=== PATIENT | female | born 1950 | race African-American/Black ===

== ENCOUNTER 2025-03-01 14:31 | Emergency (ER) | payer OTHER, MEDICARE, SELFPAY ==
--- NOTE | ~2025-03-01 | CT_ITS ---
CLINICAL HISTORY: sepsis CT chest with contrast Comparison: CT/SR - CT ABDOMEN PELVIS W IV CON - 03/01/25 20:20 EDT Findings: The heart is normal size. Small hiatal hernia. Dual power injectable right internal jugular chest port. Moderate to severe emphysema most significant in the upper lungs. Mild atelectasis at the lung bases. No consolidation or effusion. Abdominal findings are discussed on the comparison exam. Old T12 superior endplate Schmorl's node. Osteopenia. No acute fracture. IMPRESSION: No CT findings to explain sepsis. This document has been electronically signed by: Alyx Peterson MD on 03/01/2025 22:55:40
--- NOTE | ~2025-03-01 | CT_ITS ---
CLINICAL HISTORY: hallucinations CT head without contrast Comparison: None provided Findings: No intra-axial mass, midline shift, hydrocephalus, or acute hemorrhage. Moderate atrophy like change and nonspecific white matter hypodensity. The visualized paranasal sinuses and mastoid air cells are normal. Irregular shaped globes. Bilateral lens replacements. Orbits otherwise unremarkable. There is no acute fracture. IMPRESSION: No acute intracranial findings. This document has been electronically signed by: Alyx Peterson MD on 03/01/2025 22:57:45
--- NOTE | ~2025-03-01 | XR_ITS ---
EXAMINATION: XR CHEST CLINICAL INFORMATION: sepsis COMPARISON: None available. TECHNIQUE: Frontal view of the chest was obtained. FINDINGS: Right IJ tunneled catheter terminates at the superior cavoatrial junction. Lungs are clear with a reticular pattern in the right greater than left lung. Heart size is within normal limits. XR/XR chest 1V IMPRESSION: Probable chronic changes, no acute disease. Electronically signed by: Reinier Morgan MD 03/01/2025 05:13 PM EDT
--- NOTE | ~2025-03-01 | CT_ITS ---
CLINICAL HISTORY: abdominal pain CT abdomen and pelvis with contrast Comparison: CT/SR - CT CHEST W IV CON - 03/01/25 20:20 EDT Findings: Chest findings are discussed on the comparison. Mild dependent atelectasis at the lung bases. Unremarkable gallbladder and solid organs. No urolithiasis. No bowel obstruction, pneumoperitoneum, or pneumatosis. Moderate stool. Mesenteric vessels patent. Small right inguinal hernia contains fat without induration. Small calcified uterine fibroids. Ovaries are unremarkable. Normal appendix. Distal colonic diverticulosis without diverticulitis. Osteopenia. Subacute appearing mild superior endplate compression fracture L3. Old mild compression fractures scattered through the lumbar spine and superior endplate schmorl's node at T12. IMPRESSION: 1. Moderate stool without bowel obstruction. 2. Subacute appearing mild superior endplate L3 compression fracture. 3. Small right inguinal hernia contains fat without induration. This document has been electronically signed by: Alyx Peterson MD on 03/01/2025 22:54:44
[2025-03-01 15:06] VITALS: BP 158/88; BP 185/89; PULSE 77; PULSE 91; RESP 18; TEMP 37.1; O2SAT 95; O2SAT 98; BMI 37.4
--- NOTE | 2025-03-01 15:13 | ECG_ITS ---
Test Reason : WEAKNESS Blood Pressure : */* mmHG Vent. Rate : 77 BPM Atrial Rate : 77 BPM P-R Int : 242 ms QRS Dur : 102 ms QT Int : 406 ms P-R-T Axes : 16 -11 13 degrees QTcB Int : 459 ms Sinus rhythm with 1st degree A-V block Possible Left atrial enlargement Borderline ECG No previous ECGs available Referred By: Generic ED Physician Electronically Signed By: MAJOR TOWNSEND MD
[2025-03-01 16:58] LABS: MANUAL DIFF FLAG NO
--- NOTE | 2025-03-01 17:01 | PC.NURSE ---
Pt BIBA for reports of generalized weakness with mult falls at home, Also reports visual hallucinations, ex- seeing people that are not there. A/O x 3, reports low back pain 12/28. EKG and labs collected and sent. #22 to [facility], IVF per AUG. Call galo within reach and able to make needs known.
[2025-03-01 17:02] LABS: Hematocrit 41.6 % (37.0-47.0); Hemoglobin 13.6 g/dl (12.0-16.0); Imm Gran Abs Auto 0.01 X10*3/uL (0.00-0.03); Imm Gran Pct Auto 0.2 % (0.0-0.4); Lymphocytes Absolute Auto 1.6 X10*3/uL (1.2-4.9); Mean Corpuscular HGB Conc 32.7 g/dl (31.0-35.0); Mean Corpuscular Hemoglobin 28.6 pg (27.0-33.0); Mean Corpuscular Volume 87.6 fL (80.0-98.0); NRBC Abs Auto 0.000 X10*3/uL (0.0-0.012); NRBC Pct Auto 0.0 /100WBC (0.0-0.2); Platelet Count 184 X10*3/uL (160-400); Red Blood Count 4.75 X10*6/uL (4.20-5.50); White Blood Count 5.4 X10*3/uL (4.8-10.8)
[2025-03-01 17:15] LABS: IDNOW Serial# 6674DD1D
[2025-03-01 17:16] LABS: COVID-19 Test Negative (Negative); IDNOW Serial# 08D9AD1C; Influenza B2 Negative (Negative)
[2025-03-01 17:19] LABS: Alanine Aminotransferase 16 U/L (0-31); Albumin Level 4.7 g/dL (3.5-5.0); Alkaline Phosphatase 103 U/L (39-117); Anion Gap 16 (12-20); Aspartate Amino Transferase 30 U/L (5-31); Blood Urea Nitrogen 17 mg/dL (9-16); Calcium 9.9 mg/dL (8.4-10.2); Carbon Dioxide 26 mmol/L (22-29); Chloride 106 mmol/L (96-108); Creatinine Clr Calc Pharmacy 96.5; Estimated Glomerular Filt Rate > 60; Potassium 3.8 mmol/L (3.3-5.1); Sodium 144 mmol/L (135-145); Total Protein 7.8 g/dL (6.5-8.0)
--- NOTE | 2025-03-01 17:19 | ED.GENADULT ---
HPI - General Adult General Chief complaint: Weakness Stated complaint: SEEING SHADOWS X3D,ON HOME O2 PER EMS Time Seen by Provider: 03/01/25 15:26 Source: patient Mode of arrival: ambulatory Limitations: no limitations History of Present Illness ED Provider: Dr. Dawson HPI narrative: This is a 74-year-old female presenting to ER today for evaluation of hallucinations. Patient stated that she has been seen shattered we presents that has not been there in the past. She is also complaining of generalized weakness with fatigue. She also has multiple fall at home. He has not complained of any headache at this time. Patient denies any dysuria denies any abdominal pain nausea vomiting or diarrhea. Patient denies any coughing. However does endorse some nasal congestion. Related Data Home Medications ?Medication ?Instructions ?Recorded ?Confirmed acetaminophen 650 mg 650 mg PO TIDWM 03/02/25 03/02/25 tablet,extended release apixaban 5 mg tablet (Eliquis) 5 mg PO BID 03/02/25 03/02/25 bumetanide 1 mg tablet 1 mg PO DAILY PRN Leg Swelling 03/02/25 03/02/25 bupropion HCl 150 mg 24 hr tablet, 150 mg PO DAILY 03/02/25 03/02/25 extended release bupropion HCl 300 mg 24 hr tablet, 300 mg PO DAILY 03/02/25 03/02/25 extended release buspirone 5 mg tablet 5 mg PO TID 03/02/25 03/02/25 clonazepam 0.5 mg tablet 0.5 mg PO BID 03/02/25 03/02/25 donepezil 10 mg tablet 10 mg PO BEDTIME 03/02/25 03/02/25 ezetimibe 10 mg tablet 10 mg PO DAILY 03/02/25 03/02/25 fluticasone fur. 100 mcg-umeclid 1 ea inhalation DAILY 03/02/25 03/02/25 62.5 mcg-vilant 25 mcg inhalat.powder (Trelegy Ellipta) gabapentin 300 mg capsule 300 mg PO DAILY 03/02/25 03/02/25 gabapentin 300 mg capsule 900 mg PO BEDTIME 03/02/25 03/02/25 levocetirizine 5 mg tablet 5 mg PO BEDTIME 03/02/25 03/02/25 lisinopril 40 mg tablet 40 mg PO DAILY 03/02/25 03/02/25 trazodone 150 mg tablet 150 - 300 mg PO BEDTIME PRN 03/02/25 03/02/25 Insomnia verapamil 240 mg 24 hr 240 mg PO DAILY 03/02/25 03/02/25 capsule,extended release vibegron 75 mg tablet (Gemtesa) 75 mg PO DAILY 03/02/25 03/02/25 Allergies Allergy/AdvReac Type Severity Reaction Status Date / Time Penicillins Allergy Shortness Verified 03/01/25 15:12 of Breath Review of Systems Review of Systems: Pertinent review of systems as mentioned in HPI. All other system otherwise negative. [facility] Past Medical History [facility] Narrative: History is limited to the patient mentation currently Social History Social History Smoked in Last 30 Days: No Advance Directives: No Advance Directives Information Provided: Yes Physical Exam ED Exam Exam: General: Patient is resting in bed. Head: Normacephalic, atraumatic ENT: oral mucosa moist, neck supple, no tracheal deviation Cardiovascular: regular rate, regular rhythm, no murmurs, rubbing, gallops Respiratory: CTAB, no wheeze, rales, rhonchi Gastrointestinal: Soft, non distended, non tender, non guarding Extremities: No limb pain or swelling, no calf tenderness Neurological: Awake and alert, no facial droop noted Skin: Warm and dry Psychiatric: Endorses hallucinations Vital Signs: Vital Signs - 24 hr 03/01/25 18:59 03/01/25 20:34 03/01/25 22:29 Temperature 98.1 F 98.2 F 98.4 F Pulse Rate 76 78 74 Respiratory Rate 12 17 14 Blood Pressure 150/65 H 178/86 H 170/75 H Pulse Oximetry 100 97 99 Oxygen Delivery Method Nasal Cannula Room Air Nasal Cannula Oxygen Flow Rate 2 2 03/02/25 06:00 03/02/25 10:34 03/02/25 14:00 Temperature 97.2 F 98.1 F Pulse Rate 81 81 91 Respiratory Rate 16 18 Blood Pressure 185/76 H 185/76 H 182/98 H Pulse Oximetry 95 95 99 Oxygen Delivery Method Nasal Cannula Nasal Cannula Oxygen Flow Rate 2 2 BMI result Body Mass Index 37.4 Course Reevaluation(s) Reevaluation #1: 11:07 PM 03/01/2025 (Dr. Hitesh Dow): IDr. Dow have take over the care of this patient, I reviewed pertinent blood work and imaging, re-evaluated the patient when appropriate. Patient presented with weakness, multiple falls at home, had CT head chest abdomen and pelvis, I have viral swab that was negative, she has not been febrile, she did have lactate elevation to 2.3 IV fluids given and the numbers have improved. However patient has had multiple falls at home, her left knee has as she describes DJD with [id number] and and I do see that when I palpate her knee that is the most painful area in her body, she has DNR DNI, I am going to keep her for case management, she states she was in rehab up until 2 weeks ago. Sounds like she left because of high co-pay. There was report that patient was having visual hallucinations, this maybe the dementia she was worked up for delirium and surely if she is home nonambulatory this can be contributing to this but there was no evidence that this is due to underlying septic etiology. l Time: 23:06 Reevaluation #2: JS Nixon 03/02- Physician observation continued. Uneventful night. Vital signs stable. No complaints from nursing overnight. Med reconciliation reviewed and done. Pending disposition. Will continue to monitor. Time: 08:24 Reevaluation #3: Patient will be discharged home she is VNA services at home daughter will come for transport Educated patient on diagnosis and treatment plan, answered all question, patient verbalizes understanding. At this time patient will be discharged home, advised to return with new or worsening symptoms. Educated on worrisome signs and symptoms and when to return. At this time I feel comfortable discharge home. Medications Administered Discontinued Medications Generic Name Dose Route Start Last Admin Trade Name Tremayne PRN Reason Stop Dose Admin Acetaminophen 975 mg 03/01/25 16:00 03/01/25 16:58 Acetaminophen 325 Mg Tablet PO 03/01/25 16:01 975 mg ONCE ONE Administration Acetaminophen 975 mg 03/01/25 23:04 03/01/25 23:09 Acetaminophen 325 Mg Tablet PO 03/01/25 23:05 975 mg ONCE ONE Administration Sodium Chloride 1,000 mls @ 999 mls/hr 03/01/25 16:00 03/01/25 19:48 Ns IV 03/01/25 17:00 Infused .Q1H1M BRANDON Infusion Levofloxacin 750 mg in 150 mls @ 100 mls/hr 03/01/25 17:22 03/01/25 19:48 Levaquin IV 03/01/25 18:51 Infused ONCE ONE Infusion Iohexol 100 ml 03/01/25 20:40 03/01/25 20:40 Iohexol 350 Mg/Ml 100 Ml Infus..Btl IV 03/01/25 20:41 100 ml ONCE ONE Administration Medical Decision Making Medical Decision Making [facility] Narrative: 74-year-old female presented hospital today for evaluation of visual hallucination increased weakness and fall. Sepsis screening lab work was obtained for the patient. We will plan to give patient some p.o. Tylenol IV fluid, a dose of IV Levaquin will be initiated for the patient as well for empiric coverage. CBC chemistry lactic acid blood culture will be obtained as well. UA and COVID testing will be obtained. Plan to rule out UTI. On review of patient's lab work. No sign of leukocytosis does have elevated lactic acid at 2.3. Patient does have elevated BUN to creatinine ratio likely secondary to dehydration. UA does show smoke leuk esterase. Patient likely has a UTI. However her urine bacteria did not show any signs of bacteria. COVID and flu swab is negative. I did obtain a CT head due to patient's multiple falls. Patient will be signed out to oncoming provider pending CT imaging results. Differential Diagnosis Differential Diagnoses: The differential diagnosis associated with the presentation includes COVID, flu, UTI, metabolic encephalopathy Lab Data [facility] Lab Attestation statement: I reviewed the patient's lab results. 03/01/25 16:47 03/01/25 16:47 Labs: Lab Results 03/01/25 03/01/25 03/01/25 Range/Units 16:47 18:55 19:20 WBC 5.4 (4.8-10.8) X10*3/uL RBC 4.75 (4.20-5.50) X10*6/uL Hgb 13.6 (12.0-16.0) g/dl Hct 41.6 (37.0-47.0) % MCV 87.6 (80.0-98.0) fL MCH 28.6 (27.0-33.0) pg MCHC 32.7 (31.0-35.0) g/dl RDW 14.0 (11.0-16.0) % Plt Count 184 (160-400) X10*3/uL MPV 10.7 (9.4-12.3) fL Immature Gran % (Auto) 0.2 (0.0-0.4) % Neut % (Auto) 57.4 (45-73) % Lymph % (Auto) 30.3 (20-40) % [place] % (Auto) 8.1 (2-11) % Eos % (Auto) 3.3 (0-4) % Baso % (Auto) 0.7 (0-2) % Lymph # (Auto) 1.6 (1.2-4.9) X10*3/uL [place] # (Auto) 0.4 (0.1-1.2) X10*3/uL Eos # (Auto) 0.2 (0.0-0.4) X10*3/uL Baso # (Auto) 0.0 (0.0-0.2) X10*3/uL Abs Immat Gran (auto) 0.01 (0.00-0.03) X10*3/uL Absolute Neuts (auto) 3.1 (2.0-8.3) x10*3/uL Absolute Nucleated RBC 0.000 (0.0-0.012) X10*3/uL Nucleated RBC % (auto) 0.0 (0.0-0.2) /100WBC Sodium 144 (135-145) mmol/L Potassium 3.8 (3.3-5.1) mmol/L Chloride 106 (96-108) mmol/L Carbon Dioxide 26 (22-29) mmol/L Anion Gap 16 (12-20) BUN 17 H (9-16) mg/dL Creatinine 0.66 (0.5-1.4) mg/dL Estim Creat Clear Calc 96.5 Estimated GFR > 60 Random Glucose 80 (60-115) mg/dL Lactic Acid 2.3 H* (0.5-2.0) mmol/L Lactic Acid F/U @ 2Hr 1.3 (0.5-2.0) mmol/L Calcium 9.9 (8.4-10.2) mg/dL Total Bilirubin 0.5 (0.0-1.0) mg/dL AST 30 (5-31) U/L ALT 16 (0-31) U/L Alkaline Phosphatase 103 (39-117) U/L Total Protein 7.8 (6.5-8.0) g/dL Albumin 4.7 (3.5-5.0) g/dL Urine Color Yellow Urine Appearance Clear Urine pH 6.0 (5.0-9.0) Ur Specific [place] 1.020 (1.005-1.025) Urine Protein Trace (Neg-Trace) mg/dL Urine Glucose (UA) Negative (Negative) mg/dL Urine Ketones Negative (Negative) mg/dL Urine Blood Negative (Negative) Urine Nitrite Negative (Negative) Ur Leukocyte Esterase Small (1+) H (Negative) Urine RBC 0-2 (0-2) /HPF Urine WBC 6-10 H (0-5) /HPF Ur Squamous Epith Cells 3-5 (0-2) /HPF Urine Bacteria None Seen (None Seen) Hyaline Casts 0-2 (0-2) /LPF COVID-19 (PÉREZ) Negative (Negative) COVID-19 Clin Com See Note Influenza Type A (HARITHA) Negative (Negative) Influenza Type B (HARITHA) Negative (Negative) Influenza A & B Note See Note Discharge Plan Discharge Clinical Impression: Acute metabolic encephalopathy, Adult failure to thrive, Osteoarthritis of left knee Patient Disposition: Home, Self-Care Instructions: Encephalopathy (DC), Osteoarthritis (ED) Additional Instructions: Take your medications as prescribed. If you were prescribed antibiotics today, it is important that you take your medication to their entirety, do not skip any doses, do not finish them early. Follow-up with your primary care provider this week. Return to the emergency department with new or worsening symptoms. Such as fevers, chills, chest pain, shortness of breath, nausea, vomiting, dizziness, headache, vision changes, lethargy In case of emergency call 911 Prescriptions: No Action buspirone 5 mg tablet 5 mg PO TID donepezil 10 mg tablet 10 mg PO BEDTIME clonazepam 0.5 mg tablet 0.5 mg PO BID trazodone 150 mg tablet 150 - 300 mg PO BEDTIME PRN (Reason: Insomnia) bumetanide 1 mg tablet 1 mg PO DAILY PRN (Reason: Leg Swelling) lisinopril 40 mg tablet 40 mg PO DAILY verapamil 240 mg capsule,ext rel. pellets 24 hr 240 mg PO DAILY ezetimibe 10 mg tablet 10 mg PO DAILY bupropion HCl 300 mg tablet extended release 24 hr 300 mg PO DAILY Rx Instructions: Taken with 150MG for TDD of 450mg daily bupropion HCl 150 mg tablet extended release 24 hr 150 mg PO DAILY Rx Instructions: Taken with 300mg for TDD of 450mg daily levocetirizine 5 mg tablet 5 mg PO BEDTIME Eliquis 5 mg tablet 5 mg PO BID acetaminophen 650 mg Tablet Extended Release 650 mg PO TIDWM gabapentin 300 mg capsule 300 mg PO DAILY gabapentin 300 mg capsule 900 mg PO BEDTIME Gemtesa 75 mg tablet 75 mg PO DAILY Trelegy Ellipta 100-62.5-25 mcg blister with device 1 ea inhalation DAILY Print Language: Guatemalan
--- OUTSIDE RECORDS SUMMARY | 2025-03-01 18:55 | XMS_ITS | Encounter Summary ---
Author Organization [facility] Address [address] [place] [address] Care Team Providers Care Shop Clerk Name Role Phone Rosalie Brush MD Primary Care Provider [phone]- [phone] Encounter Details Date Type Department Care Team (Late st Contact Info) Description 02/06/2025 Lab Requisition [facility] - Main Lab [address] [place] [address] Selvin Ruiz MD [address] [place] [address] [address] [place], [address] Urinary tract infection, site not specified Social History Tobacco Use Types Packs/Day Years Used Date Smoking Tobacco: Former Cigarettes Alcohol Use Standard Drinks/Week Comments Never 0 (1 standard drink = 0.6 oz pur e alcohol) Interpersonal Safety Answer Date Record ed Physical Abuse 01/31/2025 Verbal Abuse 01/31/2025 Comments No Sex and Gender Information Value Date Recorded Sex Assigned at Not on file Legal Sex Female 12:08 AM EST Gender Identity Not on file Sexual Orientation Not on file documented as of this encounter Functional Status * Are you deaf or do you have serious difficulty hearing? Answer Date of Assessment Author No 12/19/2024 7:53 PM EDT Melisa Eden, RN * Are you blind or do you have serious difficulty seeing, even when wearing glasses? Answer Date of Assessment Author Yes 12/19/2024 7:53 PM EDT Melisa Eden RN * Do you have serious difficulty walking or climbing stairs? Answer Date of Assessment Author Yes 12/19/2024 7:53 PM EDT Melisa Eden RN * Do you have serious difficulty dressing or bathing? Answer Date of Assessment Author Yes 12/19/2024 7:53 PM EDT Melisa Eden RN * Because of a physical, mental, or emotional condition, do you have serious difficulty doing errandsalone such as visiting the doctor? Answer Date of Assessment Author Yes 12/19/2024 7:53 PM EDT Melisa Eden RN documented as of this encounter Mental Status * Because of a physical, mental, or emotional condition, do you have serious difficulty concentrating, remembering, or making decisions? (5 years old or older) Answer Entry Date Author No 12/19/2024 7:53 PM EDT Melisa Eden RN documented in this encounter Plan of Treatment Not on file documented as of this encounter Procedures Procedure Name Priority Date/Time Associated Diagnosis Comments URINALYSIS WITH REFLEX MICROSCOPIC Routine 02/06/2025 6:00 AM EDT Urinary tract infection, site not specified URINALYSIS WITH REFLEX MICROSCOPIC Routine 02/06/2025 6:00 AM EDT Urinary tract infection, site not specified CULTURE URINE Routine 02/06/2025 6:00 AM EDT Urinary tract infection, site not specified documented in this encounter Results * Urinalysis with reflex microscopic (02/06/2025 6:00 AM EDT) Specific [place] Urine 1.017 1.003 - 1.030 LAB URINALYSIS - AUTOMATED METHOD 02/06/2025 9:37 AM [facility] pH, Urine 6.0 5.0 - 8.0 pH LAB URINALYSIS - AUTOMATED METHOD 02/06/2025 9:37 AM [facility] Leukocytes, Urine Negative Negative LAB URINALYSIS - AUTOMATED METHOD 02/06/2025 9:37 AM [facility] Nitrite, Urine Negative Negative LAB URINALYSIS - AUTOMATED METHOD 02/06/2025 9:37 AM EDT [facility] Protein, Urine Negative <=Trace mg/dL LAB URINALYSIS - AUTOMATED METHOD 02/06/2025 9:37 AM EDT [facility] Glucose, Urine Negative Negative mg/dL LAB URINALYSIS - AUTOMATED METHOD 02/06/2025 9:37 AM EDT [facility] Ketones, Urine Negative Negative mg/dL LAB URINALYSIS - AUTOMATED METHOD 02/06/2025 9:37 AM EDT [facility] Urobilinogen, Urine 0.2 0.2 - 1.0 mg/dL LAB URINALYSIS - AUTOMATED METHOD 02/06[facility]25 [facility] Bilirubin, Urine Negative Negative LAB URINALYSIS - AUTOMATED METHOD 02/06/2025 9:37 AM [facility] Blood, Urine Negative Negative LAB URINALYSIS - AUTOMATED METHOD 02/06/2025 9:37 AM T [facility] Urine Urine specimen obtained by clean catch procedure / Unknown 02/06/2025 6:00 AM EDT 02/06/2025 9:18 AM EDT us Selvin Ruiz MD LAB URINE ORDERABLES Final Resul t Performing Organization Address City/State/[facility] Co de Phone Number [facility] [address] [place] [address], * (ABNORMAL) Culture urine (02/06/2025 6:00 AM EDT) Culture, Urine 10,000-49,000 CFU/mL Pseudomonas aeruginosa(A) JUAN 02/08/2025 10:29 AM EDT [facility] Comment: This is an edited result. Previous organism was Gram negative bacilli on 02/07/2025 at 0831 EDT. Urine Urine specimen obtained by clean catch procedure / Unknown 02/06/2025 6:00 AM EDT 02/06/2025 9:18 AM EDT Narrative Organism Antibiotic Method Susceptibility Pseudomonas aeruginosa Piperacillin/Tazobactam JUAN 8 ug/ml: Susceptible Pseudomonas aeruginosa Ceftazidime JUAN 2 ug/ml: Susceptible Pseudomonas aeruginosa Cefepime JUAN 2 ug/ml: Susceptible Pseudomonas aeruginosa Meropenem JUAN <=0.25 ug/ml: Susceptible Pseudomonas aeruginosa Amikacin JUAN 4 ug/ml: Susceptible Pseudomonas aeruginosa Ciprofloxacin JUAN 0.12 ug/ml: Susceptible Pseudomonas aeruginosa Levofloxacin JUAN 0.25 ug/ml: Susceptible us Selvin Ruiz MD LAB MICROBIOLOGY - GENERAL ORDER MORGAN Final Result [facility] [address] [place] [address], documented in this encounter Visit Diagnoses Diagnosis Urinary tract infection, site not specified documented in this encounter Care Teams Shop Clerk Relationship Specialty Start Date End Date Rosalie Brush MD [address] [place] [id number] PCP - General Internal Medicine 12/19/24 documented as of this encounter
--- OUTSIDE RECORDS SUMMARY | 2025-03-01 18:55 | XMS_ITS | Encounter Summary ---
Author Organization [facility] Address [address] [place] [address] Care Team Providers Care Photoengraving Proofer Name Role Phone Rosalie Brush MD Primary Care Provider +1- [phone] Encounter Details Date Type Department Care Team (Late st Contact Info) Description 02/05/2025 Lab Requisition [facility] - Main Lab [address] [place] [address] Selvin Ruiz MD [address] [place] [address], [address] Chronic obstructive pulmonary disease with (acute) exacerbation (CMS/HCC V24, CMS/HCC V28); Acute and chronic respiratory failure with hypoxia (CMS/HCC V24, CMS/HCC V28) Social History Tobacco Use Types Packs/Day Years [...] 7:53 PM EDT Melisa Eden RN * Are you blind or do [...] Procedure Name Priority Date/Time Associated Diagnosis Comments COMPLETE BLOOD COUNT Routine 02/05/2025 6:38 AM EDT Chronic obstructive pulmonary disease with (acute) exacerbation (CMS/HCC V24, CMS/HCC V28) Acute and chronic respiratory failure with hypoxia (CMS/HCC V24, CMS/HCC V28) BASIC METABOLIC PANEL Routine 02/05/2025 6:38 AM EDT Chronic obstructive pulmonary disease with (acute) exacerbation (CMS/HCC V24, CMS/HCC V28) Acute and chronic respiratory failure with hypoxia (CMS/HCC V24, CMS/HCC V28) documented in this encounter Results * Basic metabolic panel (02/05/2025 6:38 AM EDT) [facility] Sodium 140 133 - 145 mmol/L LAB CHEMISTRY METHOD 02/05/2025 12:26 PM EDT [facility] Potassium 4.2 3.5 - 5.5 mmol/L LAB CHEMISTRY METHOD 02/05/2025 12:26 PM [facility] Chloride 108 96 - 110 mmol/L LAB CHEMISTRY METHOD 02/05/2025 12:26 PM [facility] CO2 26 21 - 32 mmol/L LAB CHEMISTRY METHOD 02/05/2025 12:26 PM [facility] Anion Gap 6 3 - 11 LAB CHEMISTRY METHOD 02/05/2025 12:26 PM [facility] Glucose 79 70 - 100 mg/dL LAB CHEMISTRY METHOD 02/05/2025 12:26 PM [facility] BUN 18 5 - 25 mg/dL LAB CHEMISTRY METHOD 02/05/2025 12:26 PM [facility] Creatinine 0.57 0.50 - 1.10 mg/dL LAB CHEMISTRY METHOD 02/05/2025 12:26 PM [facility] eGFR 95 >=60 mL/min/1. 73m2 LAB CHEMISTRY METHOD 02/05/2025 12:26 PM [facility] Comment:Calculation based on the Chronic Kidney Disease Epidemiology Collaboration (CKD-EPI) equation refit without adjustment for race. BUN/Creatinine Ratio 31.6 LAB CHEMISTRY METHOD 02/05/2025 12:26 PM [facility] Calcium 8.5 8.5 - 10.5 mg/dL LAB CHEMISTRY METHOD 02/05/2025 12:26 PM [facility] Blood Venous blood specimen / Unknown Venipuncture / Unknown 02/05/2025 6:38 AM EDT 02/05/2025 10:49 AM EDT us Selvin Ruiz MD LAB BLOOD ORDERABLES Final Resul t [facility] [address] [place] [address], * (ABNORMAL) Complete blood count (02/05/2025 6:38 AM EDT) WBC 6.2 4.8 - 10.8 K/mcL LAB HEMETOLOGY METHOD 02/05/2025 12:34 PM [facility] RBC 3.90 3.80 - 4.80 M/mcL LAB HEMETOLOGY METHOD 02/05/2025 12:34 PM [facility] Hemoglobin 11.3(L) 11.5 - 16.0 g/dL LAB HEMETOLOGY METHOD 02/05/2025 12:34 PM [facility] Hematocrit 35.7 35.0 - 47.0 % LAB HEMETOLOGY METHOD 02/05/2025 12:34 PM [facility] MCV 91.1 79.0 - 98.0 FL LAB HEMETOLOGY METHOD 02/05/2025 12:34 PM [facility] MCH 28.8 27.0 - 32.0 pcg LAB HEMETOLOGY METHOD 02/05/2025 12:34 PM [facility] MCHC 31.7(L) 32.0 - 37.0 g/dL LAB HEMETOLOGY METHOD 02/05/2025 12:34 PM [facility] RDW 13.7 11.0 - 15.0 % LAB HEMETOLOGY METHOD 02/05/2025 12:34 PM [facility] Platelets 186 130 - 400 K/mcL LAB HEMETOLOGY METHOD 02/05/2025 12:34 PM [facility] MPV 10.9 7.0 - 11.0 FL LAB HEMETOLOGY METHOD 02/05/2025 12:34 PM [facility] NRBC 0.0 <1.0 % LAB HEMETOLOGY METHOD 02/05/2025 12:34 PM [facility] NRBC Absolute 0.00 <0.10 K/mcL LAB HEMETOLOGY METHOD [facility] Blood Venous blood specimen / Unknown Venipuncture / Unknown 02/05/2025 6:38 AM EDT 02/05/2025 10:49 AM EDT us Selvin Ruiz MD LAB BLOOD ORDERABLES Final Resul t [facility] [address] [place] [address], documented in this encounter Visit Diagnoses Diagnosis Chronic obstructive pulmonary disease with (acute) exacerbation (CMS/HCC V24, CMS/HCC V28) Acute and chronic respiratory failure with hypoxia (CMS/HCC V24, CMS/HCC V28) documented in this encounter Care Teams Photoengraving Proofer Relationship Specialty Start Date End Date Rosalie Brush MD [address] [place] [address] PCP - General Internal Medicine 12/19/24 documented as of this encounter
--- OUTSIDE RECORDS SUMMARY | 2025-03-01 18:55 | XMS_ITS | Encounter Summary ---
Author Organization [facility] Address [address] [place] [address] Care Team Providers Care Safe Expert Name Role Phone Rosalie Brush MD Primary Care Provider +1- [phone] Encounter Details Date Type Department Care Team (Late st Contact Info) Description 02/09/2025 Lab Requisition [facility] - Main Lab [address] [place] [address] Selvin Ruiz MD [address] [place] [address], [phone] Chronic obstructive pulmonary disease with (acute) [...] on file documented as of this encounter Visit Diagnoses Diagnosis Chronic obstructive pulmonary disease with (acute) exacerbation (CMS/HCC V24, CMS/HCC V28) Acute and chronic respiratory failure with hypoxia (CMS/HCC V24, CMS/HCC V28) documented in this encounter Care Teams Safe Expert Relationship Specialty Start Date End Date Rosalie Brush MD [address] [place] [address] PCP - General Internal Medicine 12/19/24 documented as of this encounter
[2025-03-01 18:57] LABS: Reflex Lactate? Lactic Acid Added
[2025-03-01 18:59] VITALS: BP 150/65; PULSE 76; RESP 12; TEMP 36.7; O2SAT 100
[2025-03-01 19:10] LABS: Appearance Urine Clear; Glucose Urine UA Negative (Negative); PH 6.0 (5.0-9.0); Specific Gravity - Urine 1.020 (1.005-1.025); UMIC TRIGGER UACC YES
[2025-03-01 19:14] LABS: UACC Culture Trigger YES
[2025-03-01 19:41] LABS: ~Lactic Acid-LAB USE ONLY 1.3 mmol/L (0.5-2.0)
[2025-03-01 20:34] VITALS: BP 178/86; PULSE 78; RESP 17; TEMP 36.8; O2SAT 97
[2025-03-01] MEDS: iohexoL 350 MG/ML 100 ML INFUS..BTL IV (20:40)
[2025-03-01 22:29] VITALS: BP 170/75; PULSE 74; RESP 14; TEMP 36.9; O2SAT 99
--- NOTE | 2025-03-02 02:39 | MHC.EDTECH ---
resumed care of patient at 2:15a patient is alert and oriented rolls carefully 1-2a due to left knee pain. at this time Brief is clean and dry/ skin intact no redness noted purewick is on and in place. 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 pillow under both knees for comfort and support and a heat pack for neck . call galo given
[2025-03-02 06:00] VITALS: BP 185/76; PULSE 81; RESP 16; TEMP 36.2; O2SAT 95
--- NOTE | 2025-03-02 07:44 | PC.NURSE ---
Patient is a 74-year-old female presented hospital today for evaluation of visual hallucination increased weakness and fall. Patient alert and oriented. Lungs clear bilat. Respirations even and non-labored. Abdomen soft. non-tender with positive bowel sounds. Patient noted to have a fungal rash under both breasts and guido-area. Purewick patent and intact and draining yellow urine. Positive pedal pulses with no edema. ED work up revealed acute metabolic encephalopathy, FTT and osteo arthirits of her left knee. Pending PT/CM eval. Patient aware of the plan of care.
[2025-03-02 10:34] VITALS: BP 185/76; PULSE 81; O2SAT 95
--- NOTE | 2025-03-02 12:27 | MHC.CM.ED ---
Addendum entered by Myranda Guerra 03/02/25 12:35: Patient has a history of knee arthritis. Total knee replacement was declined in the past. However, patient is aware that she needs to follow up with [facility] after rehab. Original Note: Received case management consult overnight. Patient came to the ER due to AMS. Work up essentially negative. Physical therapy eval completed. Rehab is recommended. Patient lives alone, ambulates with a walker, receives oxygen through [employer], and is active with [facility]. PCP is Dr Hurt. Copy of HCP obtained from [facility] [place]. Patient was at [facility] about a month ago for 2 nights and then was d/c'd to [facility] under her [employer]. However, because she did not have a qualifying hospital stay, [facility] was paying 80% and she was required to pay the remaining 20%, which is $400 per week. Patient was not aware of this prior to transferring to [facility] and was d/c'd home. Patient agreeable to referral being broadcasted to all 3 acute rehab facilities. Continue to monitor for d/c needs.
--- NOTE | 2025-03-02 13:08 | PHA.MEDREC ---
Addendum entered by Miranda Ward [facility] 03/02/25 13:40: Reviewed by pharmacist Original Note: Pharmacy Consult ? Medication Reconciliation Pharmacy has completed the medication reconciliation. Spoke with pt and she was a poor historian with her medications; pt told us to call her pharmacy ([facility]) to confirm, her daughter wont know her meds per pt. Got list of meds from [facility] and utilized that to confirm med rec.
[2025-03-02 14:00] VITALS: BP 182/98; PULSE 91; RESP 18; TEMP 36.7; O2SAT 99
--- NOTE | 2025-03-02 14:48 | MHC.CM.ED ---
Addendum entered by Myranda Guerra 03/02/25 15:22: Patient requested T/W call [facility] office at [phone]. T/W attempted to call. No answer. Not able to leave a voicemail. Patient aware. Original Note: Patient remains in ER overflow. No acute rehab beds offered. When T/W previously met with patient, options of returning home with VNA or returning to a SNF where [employer] would pay 80% and patient would be required to pay 20%. Patient stated she can't afford the $400 a week to go to a SNF and she would have to return home with resumption of VNA. Met with patient to discuss d/c planning. Explained no acute rehab beds offered because they do not feel patient has a Medicare approved acute rehab diagnosis. offered for patient to d/c home tonight or tomorrow. Patient states her daughter will be able to transport her home tomorrow afternoon when she gets out of work at 330pm. Patient then asked if she could be admitted for 3 midnights so that she could go to [facility] under Medicare. T/W explained that would be Medicare Fraud and is not allowed. Patient stated she wanted to appeal her discharge. T/W explained she is an ER patient, not inpatient. You can only appeal your discharge if inpatient. Patient asked well, what would happen if I just refuse to leave. T/W explained advanced beneficiary notice of non-payment would be given and patient would be billed $1200/day. Patient stated Good luck getting blood from a stone. T/W explained if patient did not d/c home with daughter by tomorrow 03/03 at 330pm, ABN would be given. Patient stated she would discuss this with her daughter. T/W offered to call her daughter. Patient declined this offer. Patient requested CM contact card. Deana Brown, JAMIN Director made aware. Continue to monitor for d/c needs.
--- NOTE | 2025-03-02 16:36 | PC.NURSE ---
Patient decided to be discharged home even though STR was recommended. Daughter at the bedside.
[2025-03-02 16:39] VITALS: BP 182/98; PULSE 91; RESP 18; TEMP 36.7; O2SAT 99
--- OUTSIDE RECORDS SUMMARY | 2025-03-22 20:00 | XMS_ITS | Clinical Summary ---
Author Organization Unknown Care Team Providers Care Assembly Associate Name Role Phone ANGELIA FERNANDEZ, CRESCENCIO Unavailable Unavailable NABOR RN, GRISELDA Unavailable Unavailable BOTELLO ([facility]) C - PT, ZACHARY Unavailable Unavailable GUNNAR ([facility]) C - PT, JASPAL Unavailable Unavailable [facility]KEY PATIENT DAY COORDINATOR, JEREMY Unavailable Unavailab le Payers Payer Name Policy Type Policy Number Effective Date Expira tion Date MEDICARE - [facility] - PDGM [id number] Problems Condition Name Condition Details Condition Category Status Onset Date Resolution Date Last Treatment Date Treating Clinician Comments URINARY TRACT INFECTION, SITE NOT SPECIFIED Active 8 00:00: 00 CHRONIC OBSTRUCTIVE PULMONARY DISEASE, UNSPECIFIED Active 06-21 00:00: 00 PAROXYSMAL ATRIAL FIBRILLATION Active 06-21 00:00: 00 MALIGNANT NEOPLASM OF UNSP PART OF UNSP BRONCHUS OR LUNG Active 06-21 00:00: 00 HYPERTENSIVE HEART DISEASE WITH HEART FAILURE Active 06-21 00:00: 00 HEART FAILURE, UNSPECIFIED Active 06-21 00:00: 00 CHRONIC RESPIRATORY FAILURE WITH HYPOXIA Active 06-21 00:00: 00 VASCULAR DEMENTIA, MODERATE, WITH ANXIETY Active 06-21 00:00: 00 VASCULAR DEMENTIA, MODERATE, WITH MOOD DISTURBANCE Active 06-21 00:00: 00 DEPRESSION, UNSPECIFIED Active 06-21 00:00: 00 VASCULAR DEMENTIA, MODERATE, WITH OTHER BEHAVIORAL DISTURB Active 06-21 00:00: 00 OBSTRUCTIVE SLEEP APNEA (ADULT) (PEDIATRIC) Active 06-21 00:00: 00 MORBID (SEVERE) OBESITY DUE TO EXCESS CALORIES Active 06-21 00:00: 00 BODY MASS INDEX [BMI] 35.0-35.9, ADULT Active 06-21 00:00: 00 PRIMARY GENERALIZED (OSTEO)ARTHR ITIS Active 06-21 00:00: 00 HYPOTHYROIDI SM, UNSPECIFIED Active 06-21 00:00: 00 SPINAL STENOSIS, LUMBAR REGION WITHOUT NEUROGENIC YOLA Active 06-21 00:00: 00 LEGAL BLINDNESS, 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[place] Active 06-21 00:00: 00 PERSONAL HISTORY OF NICOTINE DEPENDENCE Active 06-21 00:00: 00 ACQUIRED ABSENCE OF OTHER SPECIFIED PARTS OF DIGESTIVE TRACT Active 06-21 00:00: 00 Problems related to health literacy Active 06-21 00:00: 00 CABLE RESPOOLER (CURRENT) USE OF ANTICOAGULAN TS Active 06-21 00:00: 00 USP (CURRENT) USE OF INHALED STEROIDS Active 06-21 00:00: 00 ENCOUNTER FOR ADJUSTMENT AND MANAGEMENT OF VAD Active 02-14 00:00: 00 USP (CURRENT) USE OF ANTIBIOTICS Active 02-14 00:00: 00 HISTORY OF FALLING Active 02-14 00:00: 00 PRSNL HX OF TIA (TIA), AND CEREB INFRC W/O RESID DEFICITS Active 02-14 00:00: 00 Allergies, Adverse Reactions, Alerts Allergy Name Allergy Type Status Severity Reaction(s) Onset Date Inactive Date Treating Clinician Comments SULFA (SULFONAM JULIETH ANTIBIOTI CS) Propensity to adverse reactions Active 2024-11 19:08:5 7 PCNS Propensity to adverse reactions Active 2024-11 19:08:3 2 Medications Ordered Medication Name Filled Medication Name Start Date Stop Date Current Medication? Ordering Clinician Indication Dosage Frequency Signature (SIG) Comments Components Trelegy Ellipta 100 mcg-62.5 mcg-25 mcg powder for inhalation 02-12 00:00: 00 02-20 00:00 :00 No [id number] Per instruc tions Per instructio ns (route: inhalation ) Med Classific ation: Respirato ry Therapy Agents Trelegy Ellipta 100 mcg-62.5 mcg-25 mcg powder for inhalation 02-12 00:00: 00 01-14 00:00 :00 No [id number] 1 inhalat ion DAILY 1 inhalation DAILY (route: inhalation ) Med Classific ation: Respirato ry Therapy Agents clopidogrel 75 mg tablet 17 00:00: 00 03-30 23:59 :00 No [id number] 1 tablet DAILY 1 tablet DAILY (route: oral) Med Classific ation: Hematolog ical Agents clopidogrel 75 mg tablet 17 00:00: 00 02-20 00:00 :00 No [id number] Per instruc tions Per instructio ns (route: oral) Med Classific ation: Hematolog ical Agents donepezil 10 mg tablet 02-04 00:00: 00 01-14 23:59 :00 No [id number] 1 tablet DAILY 1 tablet DAILY (route: oral) Med Classific ation: Cognitive Disorder Therapy donepezil 10 mg tablet 02-04 00:00: 00 02-20 00:00 :00 No [id number] Per instruc tions Per instructio ns (route: oral) Med Classific ation: Cognitive Disorder Therapy gabapentin 100 mg capsule 02-04 00:00: 00 05-06 23:59 :00 No [id number] 100 mg BEDTIME 100 mg BEDTIME (route: oral) Med Classific ation: Central Nervous System Agents gabapentin 100 mg capsule 02-04 00:00: 00 02-20 00:00 :00 No [id number] Per instruc tions Per instructio ns (route: oral) Med Classific ation: Central Nervous System Agents levocetiriz ine 5 mg tablet 02-04 00:00: 00 01-14 23:59 :00 No [id number] 1 tablet DAILY 1 tablet DAILY (route: oral) Med Classific ation: Respirato ry Therapy Agents levocetiriz ine 5 mg tablet 02-04 00:00: 00 02-20 00:00 :00 No [id number] Per instruc tions Per instructio ns (route: oral) Med Classific ation: Respirato ry Therapy Agents lisinopril 40 mg tablet 02-04 00:00: 00 01-14 23:59 :00 No [id number] 1 tablet DAILY 1 tablet DAILY (route: oral) Med Classific ation: Cardiovas cular Therapy Agents lisinopril 40 mg tablet 02-04 00:00: 00 02-20 00:00 :00 No [id number] Per instruc tions Per instructio ns (route: oral) Med Classific ation: Cardiovas cular Therapy Agents trazodone 50 mg tablet 02-04 00:00: 00 01-14 00:00 :00 No [id number] 1 tablet BEDTIME 1 tablet BEDTIME (route: oral) Med Classific ation: Central Nervous System Agents trazodone 50 mg tablet 02-04 00:00: 00 02-20 00:00 :00 No [id number] Per instruc tions Per instructio ns (route: oral) Med Classific ation: Central Nervous System Agents verapamil ER 240 mg 24 hr capsule,ext ended release 02-04 00:00: 00 01-14 00:00 :00 No [id number] 1 capsule DAILY 1 capsule DAILY (route: oral) Med Classific ation: Cardiovas cular Therapy Agents verapamil ER 240 mg 24 hr capsule,ext ended release 02-04 00:00: 00 02-20 00:00 :00 No [id number] Per instruc tions Per instructio ns (route: oral) Med Classific ation: Cardiovas cular Therapy Agents ipratropium 0.5 mg-albutero l 3 mg (2.5 mg base)/3 mL nebulizatio n soln 02-02 00:00: 00 01-14 23:59 :00 No [id number] Unavailable Per instruc tions NEEDED Per instructio ns NEEDED (route: inhalation ) Med Classific ation: Respirato ry Therapy Agents albuterol sulfate HFA 90 mcg/actuati on aerosol inhaler 01-25 00:00: 00 01-14 23:59 :00 No [id number] Per instruc tions 4 TIMES A DAY NEEDED Per instructio ns 4 TIMES A DAY NEEDED (route: inhalation ) Med Classific ation: Respirato ry Therapy Agents albuterol sulfate HFA 90 mcg/actuati on aerosol inhaler 01-25 00:00: 00 01-14 23:59 :00 No [id number] Per instruc tions NEEDED Per instructio ns NEEDED (route: inhalation ) Med Classific ation: Respirato ry Therapy Agents albuterol sulfate HFA 90 mcg/actuati on aerosol inhaler 01-25 00:00: 00 02-20 00:00 :00 No [id number] Per instruc tions Per instructio ns (route: inhalation ) Med Classific ation: Respirato ry Therapy Agents Acidophilus capsule 02-27 00:00: 00 01-14 23:59 :00 No [id number] 1 capsule DAILY 1 capsule DAILY (route: oral) Med Classific ation: Gastroint estinal Therapy Agents B-Complex tablet 02-27 00:00: 00 01-14 23:59 :00 No [id number] 1 tablet EVERY AM 1 tablet EVERY AM (route: oral) Med Classific ation: Electroly te Balance-N utritiona l Products Centrum Silver Women 8 mg iron-400 mcg-300 mcg tablet 02-27 00:00: 00 01-14 23:59 :00 No [id number] 1 tablet EVERY AM 1 tablet EVERY AM (route: oral) Med Classific ation: Electroly te Balance-N utritiona l Products clonazepam 0.5 mg tablet 02-27 00:00: 00 01-14 23:59 :00 No [id number] 1 tablet 2 TIMES DAILY 1 tablet 2 TIMES DAILY (route: oral) Med Classific ation: Central Nervous System Agents ezetimibe 10 mg tablet 02-27 00:00: 00 01-14 23:59 :00 No [id number] 1 tablet EVERY AM 1 tablet EVERY AM (route: oral) Med Classific ation: Cardiovas cular Therapy Agents levothyroxi ne 25 mcg capsule 02-27 00:00: 00 01-14 23:59 :00 No [id number] 1 capsule EVERY AM 1 capsule EVERY AM (route: oral) Med Classific ation: Endocrine prednisone 10 mg tablets in a dose pack 02-25 00:00: 00 03-02 23:59 :00 No [id number] Per instruc tions DIRECTED Per instructio ns DIRECTED (route: oral) Med Classific ation: Endocrine Protonix 40 mg tablet,zeny yed release 02-27 00:00: 00 01-14 00:00 :00 No [id number] 40 mg EVERY AM 40 mg EVERY AM (route: oral) Med Classific ation: Gastroint estinal Therapy Agents Vitamin D3 10 mcg (400 unit) capsule 02-27 00:00: 00 01-14 00:00 :00 No [id number] 1 capsule EVERY AM 1 capsule EVERY AM (route: oral) Med Classific ation: Electroly te Balance-N utritiona l Products Eliquis 5 mg tablet 2021-06 00:00: 00 04-04 23:59 :00 No [id number] 10 mg 2 TIMES DAILY 10 mg 2 TIMES DAILY (route: oral) Med Classific ation: Hematolog ical Agents Eliquis 5 mg tablet 2021-06 0-16 00:00: 00 01-14 00:00 :00 No [id number] 5 mg 2 TIMES DAILY 5 mg 2 TIMES DAILY (route: oral) Med Classific ation: Hematolog ical Agents torsemide 20 mg tablet 2021-06 0-25 00:00: 00 07-24 23:59 :00 No [id number] 1 tablet NEEDED 1 tablet NEEDED (route: oral) Med Classific ation: Cardiovas cular Therapy Agents gabapentin 300 mg capsule 2021-06 1-16 00:00: 00 06-18 23:59 :00 No [id number] 1 capsule BEDTIME 1 capsule BEDTIME (route: oral) Med Classific ation: Central Nervous System Agents gabapentin 300 mg capsule 2021-06 00:00: 00 01-14 00:00 :00 No [id number] Per instruc tions 2 TIMES DAILY Per instructio ns 2 TIMES DAILY (route: oral) Med Classific ation: Central Nervous System Agents OXYGEN 2021-06 00:00: 00 01-14 23:59 :00 No [id number] 3 Liter O2 - CONTINUOUS 3 Liter O2 - CONTINUOUS (route: Oxygen) Med Classific ation: Medical Oxygen Tylenol Extra Strength 500 mg tablet 2021-06 00:00: 00 01-14 00:00 :00 No [id number] 2 tablet 4 TIMES DAILY 2 tablet 4 TIMES DAILY (route: oral) Med Classific ation: Analgesic , Anti-infl ammatory or Antipyret ic torsemide 20 mg tablet - 00:00: 00 08-07 23:59 :00 No [id number] 1 tablet DAILY 1 tablet DAILY (route: oral) Med Classific ation: Cardiovas cular Therapy Agents bupropion HCl XL 300 mg 24 hr tablet, extended release 01-04 00:00: 00 04-02 23:59 :00 No [id number] 1 tablet DAILY 1 tablet DAILY (route: oral) Med Classific ation: Central Nervous System Agents bupropion HCl XL 300 mg 24 hr tablet, extended release 01-04 00:00: 00 01-14 00:00 :00 No [id number] Per instruc tions Per instructio ns (route: oral) Med Classific ation: Central Nervous System Agents donepezil 10 mg tablet 01-04 00:00: 00 01-14 00:00 :00 No [id number] Per instruc tions Per instructio ns (route: oral) Med Classific ation: Cognitive Disorder Therapy donepezil 10 mg tablet 01-04 00:00: 00 01-14 00:00 :00 No [id number] Per instruc tions Per instructio ns (route: oral) Med Classific ation: Cognitive Disorder Therapy Eliquis 5 mg tablet 01-04 00:00: 00 01-14 00:00 :00 No [id number] Per instruc tions Per instructio ns (route: oral) Med Classific ation: Hematolog ical Agents Eliquis 5 mg tablet 01-04 00:00: 00 04-02 23:59 :00 No [id number] 1 tablet 2 TIMES DAILY 1 tablet 2 TIMES DAILY (route: oral) Med Classific ation: Hematolog ical Agents gabapentin 300 mg capsule 01-04 00:00: 00 01-14 00:00 :00 No [id number] Per instruc tions Per instructio ns (route: oral) Med Classific ation: Central Nervous System Agents gabapentin 300 mg capsule 01-04 00:00: 00 01-14 00:00 :00 No [id number] Per instruc tions Per instructio ns (route: oral) Med Classific ation: Central Nervous System Agents levocetiriz ine 5 mg tablet 01-04 00:00: 00 01-14 00:00 :00 No [id number] Per instruc tions Per instructio ns (route: oral) Med Classific ation: Respirato ry Therapy Agents levocetiriz ine 5 mg tablet 01-04 00:00: 00 01-14 00:00 :00 No [id number] Per instruc tions Per instructio ns (route: oral) Med Classific ation: Respirato ry Therapy Agents lisinopril 40 mg tablet 01-04 00:00: 00 01-14 00:00 :00 No [id number] Per instruc tions Per instructio ns (route: oral) Med Classific ation: Cardiovas cular Therapy Agents lisinopril 40 mg tablet 01-04 00:00: 00 01-14 00:00 :00 No [id number] Per instruc tions Per instructio ns (route: oral) Med Classific ation: Cardiovas cular Therapy Agents pantoprazol e 40 mg tablet,zeny yed release 01-04 00:00: 00 04-02 23:59 :00 No [id number] 1 tablet DAILY 1 tablet DAILY (route: oral) Med Classific ation: Gastroint estinal Therapy Agents pantoprazol e 40 mg tablet,zeny yed release 01-04 00:00: 00 01-14 00:00 :00 No [id number] Per instruc tions Per instructio ns (route: oral) Med Classific ation: Gastroint estinal Therapy Agents torsemide 20 mg tablet 01-04 00:00: 00 04-02 23:59 :00 No [id number] 1 tablet DAILY 1 tablet DAILY (route: oral) Med Classific ation: Cardiovas cular Therapy Agents torsemide 20 mg tablet 01-04 00:00: 00 01-14 00:00 :00 No [id number] Per instruc tions Per instructio ns (route: oral) Med Classific ation: Cardiovas cular Therapy Agents trazodone 50 mg tablet 01-04 00:00: 00 01-14 00:00 :00 No [id number] Per instruc tions Per instructio ns (route: oral) Med Classific ation: Central Nervous System Agents trazodone 50 mg tablet 01-04 00:00: 00 01-14 00:00 :00 No [id number] Per instruc tions Per instructio ns (route: oral) Med Classific ation: Central Nervous System Agents verapamil ER 240 mg 24 hr capsule,ext ended release 01-04 00:00: 00 01-14 00:00 :00 No [id number] Per instruc tions Per instructio ns (route: oral) Med Classific ation: Cardiovas cular Therapy Agents verapamil ER 240 mg 24 hr capsule,ext ended release 01-04 00:00: 00 04-02 23:59 :00 No [id number] 1 capsule DAILY 1 capsule DAILY (route: oral) Med Classific ation: Cardiovas cular Therapy Agents fluticasone propionate 50 mcg/actuati on nasal spray,suspe nsion 12-24 00:00: 00 04-02 23:59 :00 No [id number] 1 spray 2 TIMES DAILY 1 spray 2 TIMES DAILY (route: nasal) Med Classific ation: Respirato ry Therapy Agents Acidophilus capsule 03-15 00:00: 00 04-02 23:59 :00 No [id number] 1 capsule DAILY 1 capsule DAILY (route: oral) Med Classific ation: Gastroint estinal Therapy Agents donepezil 10 mg tablet 03-15 00:00: 00 04-02 23:59 :00 No [id number] 1 tablet BEDTIME 1 tablet BEDTIME (route: oral) Med Classific ation: Cognitive Disorder Therapy gabapentin 300 mg capsule 03-15 00:00: 00 04-02 23:59 :00 No [id number] 3 capsule BEDTIME 3 capsule BEDTIME (route: oral) Med Classific ation: Central Nervous System Agents levocetiriz ine 5 mg tablet 03-15 00:00: 00 04-02 23:59 :00 No [id number] 1 tablet DAILY 1 tablet DAILY (route: oral) Med Classific ation: Respirato ry Therapy Agents lisinopril 40 mg tablet 03-15 00:00: 00 04-02 23:59 :00 No [id number] 1 tablet DAILY 1 tablet DAILY (route: oral) Med Classific ation: Cardiovas cular Therapy Agents tramadol 50 mg tablet 03-15 00:00: 00 04-02 23:59 :00 No [id number] 1 tablet EVERY 12 HOURS 1 tablet EVERY 12 HOURS (route: oral) Med Classific ation: Analgesic , Anti-infl ammatory or Antipyret ic trazodone 50 mg tablet 03-15 00:00: 00 04-02 23:59 :00 No [id number] 1 tablet BEDTIME 1 tablet BEDTIME (route: oral) Med Classific ation: Central Nervous System Agents O2 - OXYGEN 03-10 00:00: 00 04-02 23:59 :00 No [id number] 3 Liter O2 - CONTINUOUS 3 Liter O2 - CONTINUOUS (route: Oxygen) Alternate Route: O2 - NASAL CANNULA. Med Classific ation: Medical Oxygen Myrbetriq 50 mg tablet,exte nded release 2022-06 00:00: 00 04-02 23:59 :00 No [id number] 50 mg DAILY 50 mg DAILY (route: oral) Med Classific ation: Genitouri nary Therapy Diflucan 100 mg tablet 2022-06 00:00: 00 2023- 11-03 23:59 :00 No [id number] 100 mg DIRECTED 100 mg DIRECTED (route: oral) Med Classific ation: Anti-Infe ctive Agents doxycycline monohydrate 100 mg tablet 2022-06 00:00: 00 04-29 23:59 :00 No [id number] 100 mg 2 TIMES DAILY 100 mg 2 TIMES DAILY (route: oral) Med Classific ation: Anti-Infe ctive Agents Acidophilus capsule 2023-06 00:00: 00 07-20 23:59 :00 No [id number] 1 capsule DAILY 1 capsule DAILY (route: oral) Med Classific ation: Gastroint estinal Therapy Agents albuterol sulfate HFA 90 mcg/actuati on aerosol inhaler 2023-06 00:00: 00 07-20 23:59 :00 No [id number] 2 puff EVERY 4 HOURS 2 puff EVERY 4 HOURS (route: inhalation ) Med Classific ation: Respirato ry Therapy Agents bumetanide 1 mg tablet 2023-06 00:00: 00 07-20 23:59 :00 No [id number] 1 tablet DAILY 1 tablet DAILY (route: oral) Med Classific ation: Cardiovas cular Therapy Agents bupropion HCl XL 150 mg 24 hr tablet, extended release 2023-06 00:00: 00 07-20 23:59 :00 No [id number] 1 tablet DAILY 1 tablet DAILY (route: oral) Med Classific ation: Central Nervous System Agents bupropion HCl XL 300 mg 24 hr tablet, extended release 2023-06 00:00: 00 07-20 23:59 :00 No [id number] 1 tablet DAILY 1 tablet DAILY (route: oral) Med Classific ation: Central Nervous System Agents Centrum Silver 0.4 mg-300 mcg-250 mcg tablet 2023-06 00:00: 00 07-20 23:59 :00 No [id number] 1 tablet DAILY 1 tablet DAILY (route: oral) Med Classific ation: Electroly te Balance-N utritiona l Products clonazepam 0.5 mg tablet 2023-06 00:00: 00 07-20 23:59 :00 No [id number] 1 tablet 2 TIMES DAILY 1 tablet 2 TIMES DAILY (route: oral) Med Classific ation: Central Nervous System Agents diclofenac 1 % topical gel 2023-06 00:00: 00 07-20 23:59 :00 No [id number] Per instruc tions 4 TIMES DAILY Per instructio ns 4 TIMES DAILY (route: topical) Med Classific ation: Dermatolo gical donepezil 10 mg tablet 2023-06 00:00: 00 07-20 23:59 :00 No [id number] 1 tablet BEDTIME 1 tablet BEDTIME (route: oral) Med Classific ation: Cognitive Disorder Therapy doxycycline monohydrate 100 mg tablet 2023-06 00:00: 00 04-12 23:59 :00 No [id number] 1 tablet 2 TIMES DAILY 1 tablet 2 TIMES DAILY (route: oral) Med Classific ation: Anti-Infe ctive Agents Eliquis 5 mg tablet 2023-06 00:00: 00 07-20 23:59 :00 No [id number] 1 tablet 2 TIMES DAILY 1 tablet 2 TIMES DAILY (route: oral) Med Classific ation: Hematolog ical Agents ezetimibe 10 mg tablet 2023-06 00:00: 00 07-20 23:59 :00 No [id number] 1 tablet DAILY 1 tablet DAILY (route: oral) Med Classific ation: Cardiovas cular Therapy Agents fluticasone 100 mcg-salmete rol 50 mcg/dose blistr powdr for inhalation 2023-06 00:00: 00 07-20 23:59 :00 No [id number] 1 inhalat ion 2 TIMES DAILY 1 inhalation 2 TIMES DAILY (route: inhalation ) Med Classific ation: Respirato ry Therapy Agents gabapentin 300 mg capsule 2023-06 00:00: 00 07-20 23:59 :00 No [id number] Per instruc tions 2 TIMES DAILY Per instructio ns 2 TIMES DAILY (route: oral) Med Classific ation: Central Nervous System Agents ipratropium 0.5 mg-albutero l 3 mg (2.5 mg base)/3 mL nebulizatio n soln 2023-06 00:00: 07-20 23:59 :00 No [id number] Per instruc tions 4 TIMES DAILY Per instructio ns 4 TIMES DAILY (route: inhalation ) Med Classific ation: Respirato ry Therapy Agents levocetiriz ine 5 mg tablet 2023-06 00:00: 00 07-20 23:59 :00 No [id number] 1 tablet DAILY 1 tablet DAILY (route: oral) Med Classific ation: Respirato ry Therapy Agents levothyroxi ne 25 mcg tablet 2023-06 00:00: 00 07-20 23:59 :00 No [id number] 1 tablet DAILY 1 tablet DAILY (route: oral) Med Classific ation: Endocrine lisinopril 40 mg tablet 2023-06 00:00: 00 07-20 23:59 :00 No [id number] 1 tablet DAILY 1 tablet DAILY (route: oral) Med Classific ation: Cardiovas cular Therapy Agents mupirocin 2 % topical ointment 2023-06 00:00: 00 07-20 23:59 :00 No [id number] Per instruc tions DAILY Per instructio ns DAILY (route: topical) Med Classific ation: Dermatolo gical Myrbetriq 50 mg tablet,exte nded release 2023-06 00:00: 00 07-20 23:59 :00 No [id number] 1 tablet DAILY 1 tablet DAILY (route: oral) Med Classific ation: Genitouri nary Therapy oxygen gas for inhalation 2023-06 00:00: 00 07-20 23:59 :00 No [id number] 3 Liter O2 - CONTINUOUS 3 Liter O2 - CONTINUOUS (route: inhalation ) Med Classific ation: Medical Supplies and Durable Medical Equipment (DME) pantoprazol e 40 mg tablet,zeny yed release 2023-06 00:00: 00 07-20 23:59 :00 No [id number] 1 tablet DAILY 1 tablet DAILY (route: oral) Med Classific ation: Gastroint estinal Therapy Agents tramadol 50 mg tablet 2023-06 00:00: 00 07-20 23:59 :00 No [id number] 1 tablet DAILY 1 tablet DAILY (route: oral) Med Classific ation: Analgesic , Anti-infl ammatory or Antipyret ic trazodone 50 mg tablet 2023-06 00:00: 00 07-20 23:59 :00 No [id number] 1-2 tablet BEDTIME 1-2 tablet BEDTIME (route: oral) Med Classific ation: Central Nervous System Agents verapamil ER 240 mg 24 hr capsule,ext ended release 2023-06 00:00: 00 07-20 23:59 :00 No [id number] 1 capsule DAILY 1 capsule DAILY (route: oral) Med Classific ation: Cardiovas cular Therapy Agents bupropion HCl SR 150 mg tablet,12 hr sustained-r elease 11-24 00:00: 00 Yes [id number] 1 tablet DAILY 1 tablet DAILY (route: oral) Med Classific ation: Central Nervous System Agents bupropion HCl XL 300 mg 24 hr tablet, extended release 11-24 00:00: 00 Yes [id number] 1 tablet DAILY 1 tablet DAILY (route: oral) Med Classific ation: Central Nervous System Agents buspirone 5 mg tablet 11-24 00:00: 00 Yes [id number] 1 tablet 3 TIMES DAILY 1 tablet 3 TIMES DAILY (route: oral) Med Classific ation: Central Nervous System Agents clonazepam 0.5 mg disintegrat ing tablet 11-24 00:00: 00 Yes [id number] 1 tablet 2 TIMES DAILY 1 tablet 2 TIMES DAILY (route: oral) Med Classific ation: Central Nervous System Agents donepezil 10 mg tablet 11-24 00:00: 00 Yes [id number] 1 tablet BEDTIME 1 tablet BEDTIME (route: oral) Med Classific ation: Cognitive Disorder Therapy Eliquis 5 mg tablet 11-24 00:00: 00 Yes [id number] 1 tablet 2 TIMES DAILY 1 tablet 2 TIMES DAILY (route: oral) Med Classific ation: Hematolog ical Agents ezetimibe 10 mg tablet 11-24 00:00: 00 Yes [id number] 1 tablet DAILY 1 tablet DAILY (route: oral) Med Classific ation: Cardiovas cular Therapy Agents gabapentin 300 mg capsule 11-24 00:00: 00 Yes [id number] 3 capsule DAILY 3 capsule DAILY (route: oral) Med Classific ation: Central Nervous System Agents levocetiriz ine 5 mg tablet 11-24 00:00: 00 Yes [id number] 1 tablet DAILY 1 tablet DAILY (route: oral) Med Classific ation: Respirato ry Therapy Agents lisinopril 40 mg tablet 11-24 00:00: 00 Yes [id number] 1 tablet DAILY 1 tablet DAILY (route: oral) Med Classific ation: Cardiovas cular Therapy Agents Myrbetriq 50 mg tablet,exte nded release 11-24 00:00: 00 Yes [id number] 1 tablet DAILY 1 tablet DAILY (route: oral) Med Classific ation: Genitouri nary Therapy Trelegy Ellipta 100 mcg-62.5 mcg-25 mcg powder for inhalation 11-24 00:00: 00 Yes [id number] 1 inhalat ion DAILY 1 inhalation DAILY (route: inhalation ) Med Classific ation: Respirato ry Therapy Agents Tylenol 8 Hour 650 mg tablet,exte nded release 11-24 00:00: 00 Yes [id number] 1 tablet 3 TIMES DAILY 1 tablet 3 TIMES DAILY (route: oral) Med Classific ation: Analgesic , Anti-infl ammatory or Antipyret ic verapamil ER 240 mg 24 hr capsule,ext ended release 11-24 00:00: 00 Yes [id number] 1 capsule DAILY 1 capsule DAILY (route: oral) Med Classific ation: Cardiovas cular Therapy Agents albuterol sulfate HFA 90 mcg/actuati on aerosol inhaler 11-24 00:00: 00 Yes [id number] 2 puff 4 TIMES DAILY 2 puff 4 TIMES DAILY (route: inhalation ) Med Classific ation: Respirato ry Therapy Agents Centrum Silver Women 8 mg iron-400 mcg-50 mcg tablet 11-24 00:00: 00 Yes [id number] 1 tablet DAILY 1 tablet DAILY (route: oral) Med Classific ation: Electroly te Balance-N utritiona l Products diclofenac 1 % topical gel 11-24 00:00: 00 Yes [id number] Per instruc tions 2 TIMES DAILY Per instructio ns 2 TIMES DAILY (route: topical) Med Classific ation: Dermatolo gical lidocaine 5 % topical cream 11-24 00:00: 00 Yes [id number] Per instruc tions 2 TIMES DAILY Per instructio ns 2 TIMES DAILY (route: topical) Med Classific ation: Dermatolo gical nystatin 100,000 unit/gram topical powder 11-24 00:00: 00 Yes [id number] Per instruc tions 3 TIMES DAILY Per instructio ns 3 TIMES DAILY (route: topical) Med Classific ation: Dermatolo gical Vitamin D3 50 mcg (2,000 unit) capsule 11-24 00:00: 00 Yes [id number] 1 capsule DAILY 1 capsule DAILY (route: oral) Med Classific ation: Electroly te Balance-N utritiona l Products trazodone 150 mg tablet 11-24 00:00: 00 Yes [id number] 1 tablet BEDTIME 1 tablet BEDTIME (route: oral) Med Classific ation: Central Nervous System Agents cefpodoxime 100 mg tablet 02-10 00:00: 00 02-18 23:59 :00 No [id number] 1 tablet EVERY 12 HOURS 1 tablet EVERY 12 HOURS (route: oral) Med Classific ation: Anti-Infe ctive Agents AZITHROMYCI N ORAL 01-11 00:00: 00 01-16 00:00 :00 No 250 mg2 TABLETS 1 TABLET DAILY FOR 4 DAYS 250 mg2 TABLETS 1 TABLET DAILY FOR 4 DAYS (route: ) Alternate Route: BY MOUTH . Med Classific ation: ANTI-INFE CTIVE AGENTS TRELEGY ELLIPTA INHALATION 12-07 00:00: 00 01-06 00:00 :00 No 100-62. 5-25 mcg1 PUFF EVERY DAY 100-62.5-2 5 mcg1 PUFF EVERY DAY (route: ) Med Classific ation: RESPIRATO RY THERAPY AGENTS DOXYCYCLINE MONOHYDRATE ORAL 2020-0 4-24 00:00: 00 10-22 00:00 :00 No 100 mg1 TABLET TWICE A DAY FOR 10 DAYS 100 mg1 TABLET TWICE A DAY FOR 10 DAYS (route: ) Alternate Route: BY MOUTH . Med Classific ation: ANTI-INFE CTIVE AGENTS FLUTICASONE PROPIONATE NASAL 4-24 00:00: 00 11-11 00:00 :00 No 50 mcg/act uation TWICE A DAY 50 mcg/actuat ion TWICE A DAY (route: ) Alternate Route: 1 SPRAY IN EACH NOSTRIL . Med Classific ation: RESPIRATO RY THERAPY AGENTS TRAMADOL ORAL 4-22 00:00: 00 10-25 00:00 :00 No FOR PAIN 50 mg1 TABLET EVERY 6 HOURS NEEDED 50 mg1 TABLET EVERY 6 HOURS NEEDED (route: ) Alternate Route: BY MOUTH . Med Classific ation: ANALGESIC , ANTI-INFL AMMATORY OR ANTIPYRET IC CETIRIZINE ORAL 20 00:00: 00 11-05 00:00 :00 No FOR ALLERGIES 10 mg1 TABLET EVERY DAY NEEDED 10 mg1 TABLET EVERY DAY NEEDED (route: ) Alternate Route: BY MOUTH . Med Classific ation: RESPIRATO RY THERAPY AGENTS ALBUTEROL SULFATE INHALATION 4-16 00:00: 00 10-29 00:00 :00 No 90 mcg/act uation2 PUFFS 4 TIMES A DAY NEEDED 90 mcg/actuat ion2 PUFFS 4 TIMES A DAY NEEDED (route: ) Med Classific ation: RESPIRATO RY THERAPY AGENTS FLUCONAZOLE ORAL 2-12 00:00: 00 08-03 00:00 :00 No 150 mg1 TABLET ONCE 150 mg1 TABLET ONCE (route: ) Alternate Route: BY MOUTH . Med Classific ation: ANTI-INFE CTIVE AGENTS ANORO ELLIPTA INHALATION 2018-06 00:00: 00 09-11 00:00 :00 No 62.5-25 mcg/act uation1 PUFF DAILY 62.5-25 mcg/actuat ion1 PUFF DAILY (route: ) Alternate Route: BY MOUTH . Med Classific ation: RESPIRATO RY THERAPY AGENTS ESTRADIOL VAGINAL 2018-06 2 00:00: 00 07-14 00:00 :00 No 0.01 % (0.1 mg/gram ) 05GM DAILY ONLY ON VULVA AND VAGINAL OPENING FOR 2 WEEKS THEN TWICE 0.01 % (0.1 mg/gram) 05GM DAILY ONLY ON VULVA AND VAGINAL OPENING FOR 2 WEEKS THEN TWICE (route: ) Med Classific ation: ENDOCRINE VITAMIN D3 ORAL 2018-06 2-25 00:00: 00 07-12 00:00 :00 No 50 mcg (2,000 unit)1 CAPSULE DAILY 50 mcg (2,000 unit)1 CAPSULE DAILY (route: ) Alternate Route: BY MOUTH . Med Classific ation: ELECTROLY TE BALANCE-N UTRITIONA L PRODUCTS LEVOFLOXACI N ORAL 2018-06 0 00:00: 00 04-03 00:00 :00 No 500 mg1 TABLET EVERY DAY FOR 5 DAYS 500 mg1 TABLET EVERY DAY FOR 5 DAYS (route: ) Alternate Route: BY MOUTH . Med Classific ation: ANTI-INFE CTIVE AGENTS BENZONATATE ORAL 03-10 00:00: 00 03-20 00:00 :00 No 100 mg1 CAPSULE THREE TIMES A DAY FOR 10 DAYS 100 mg1 CAPSULE THREE TIMES A DAY FOR 10 DAYS (route: ) Alternate Route: BY MOUTH . Med Classific ation: RESPIRATO RY THERAPY AGENTS Vital Signs Vital Name Observation Time Observation Value Commen ts Temperature 2025-02-27 14:59:00.000 97 [degF] Temperature 2025-02-27 10:47:00.000 97.8 [degF] Temperature 2025-02-22 13:03:00.000 97.9 [degF] Temperature 2025-02-21 13:21:00.000 97.7 [degF] Temperature 2025-02-14 11:20:00.000 98.4 [degF] Temperature 2025-01-29 11:32:00.000 98.6 [degF] Temperature 2025-01-25 13:25:00.000 97.1 [degF] BMI (%) 2025-02-22 13:03:00.000 38 kg/m2 BMI (%) 2025-02-14 11:20:00.000 39 kg/m2 Height 2025-02-22 13:03:00.000 65 [in_us] Height 2025-02-14 11:20:00.000 64 [in_us] Pulse 2025-02-27 14:59:00.000 74 /min Pulse 2025-02-27 10:47:00.000 82 /min Pulse 2025-02-22 13:03:00.000 74 /min Pulse 2025-02-21 13:21:00.000 82 /min Pulse 2025-02-14 11:20:00.000 72 /min Pulse 2025-01-29 11:32:00.000 74 /min Pulse 2025-01-25 13:25:00.000 75 /min O2 Saturation (%) 2025-02-27 14:59:00.000 94 % O2 Saturation (%) 2025-02-27 10:47:00.000 91 % O2 Saturation (%) 2025-02-22 13:03:00.000 94 % O2 Saturation (%) 2025-02-21 13:21:00.000 93 % O2 Saturation (%) 2025-02-14 11:20:00.000 94 % O2 Saturation (%) 2025-01-29 11:32:00.000 96 % Respirations 2025-02-27 14:59:00.000 18 /min Respirations 2025-02-27 10:47:00.000 20 /min Respirations 2025-02-22 13:03:00.000 18 /min Respirations 2025-02-21 13:21:00.000 18 /min Respirations 2025-02-14 11:20:00.000 20 /min Respirations 2025-01-29 11:32:00.000 22 /min Respirations 2025-01-25 13:25:00.000 19 /min Weight (lbs) 2025-02-27 10:47:00.000 231 [lb_av] Weight (lbs) 2025-02-22 13:03:00.000 230 [lb_av] Weight (lbs) 2025-02-14 11:20:00.000 230 [lb_av] Systolic Blood Pressure 2025-02-27 14:59:00.000 100 mm [Hg] Systolic Blood Pressure 2025-02-27 10:47:00.000 142 mm [Hg] Systolic Blood Pressure 2025-02-22 13:03:00.000 100 mm [Hg] Systolic Blood Pressure 2025-02-21 13:21:00.000 136 mm [Hg] Systolic Blood Pressure 2025-02-14 11:20:00.000 124 mm [Hg] Systolic Blood Pressure 2025-01-29 11:32:00.000 140 mm [Hg] Systolic Blood Pressure 2025-01-25 13:25:00.000 138 mm [Hg] Diastolic Blood Pressure 2025-02-27 14:59:00.000 50 mm [Hg] Diastolic Blood Pressure 2025-02-27 10:47:00.000 80 mm [Hg] Diastolic Blood Pressure 2025-02-22 13:03:00.000 56 mm [Hg] Diastolic Blood Pressure 2025-02-21 13:21:00.000 80 mm [Hg] Diastolic Blood Pressure 2025-02-14 11:20:00.000 80 mm [Hg] Diastolic Blood Pressure 2025-01-29 11:32:00.000 80 mm [Hg] Diastolic Blood Pressure 2025-01-25 13:25:00.000 81 mm [Hg] Plan of Treatment Planned Activity Planned Date Details Comments Future Scheduled Test SKILLED NU RSE TO EVALUATE PATIENT, IDENTIFY PRIMARY AND CO-MORBID CONDITIONS CODED PER CODING GUIDELINES, AND DEVELOP PATIENT SPECIFIC PLAN OF CARE THAT INCLUDES PATIENT GOAL FOR HOME HEALTH. [code = SKILLED NURSE TO EVALUATE PATIENT, IDENTIFY PRIMARY AND CO-MORBID CONDITIONS CODED PER CODING GUIDELINES, AND DEVELOP PATIENT SPECIFIC PLAN OF CARE THAT INCLUDES PATIENT GOAL FOR HOME HEALTH.] Future Scheduled Test SKILLED NU RSE TO REVIEW PATIENT MEDICATIONS (PRESCRIPTION/OTC). INSTRUCT PATIENT/CAREGIVER ON ALL MEDICATIONS INCLUDING PURPOSE, WHEN TO TAKE, IMPORTANCE OF MEDICATION ADHERENCE, MONITORING OF EFFECTIVENESS, ADVERSE DRUG REACTIONS, POSSIBLE SIDE EFFECTS, AND WHEN TO NOTIFY AGENCY OR PHYSICIAN/PROVIDER OF ANY CONCERNS. [code = SKILLED NURSE TO REVIEW PATIENT MEDICATIONS (PRESCRIPTION/OTC). INSTRUCT PATIENT/CAREGIVER ON ALL MEDICATIONS INCLUDING PURPOSE, WHEN TO TAKE, IMPORTANCE OF MEDICATION ADHERENCE, MONITORING OF EFFECTIVENESS, ADVERSE DRUG REACTIONS, POSSIBLE SIDE EFFECTS, AND WHEN TO NOTIFY AGENCY OR PHYSICIAN/PROVIDER OF ANY CONCERNS.] Future Scheduled Test PATIENT MCGARRY S A RISK OF HOSPITALIZATION AND ED USE. SKILLED NURSE TO ESTABLISH SUPPORT MEASURES TO MINIMIZE RISK OF HOSPITALIZATION AND ED USE, AND INSTRUCT PATIENT/CAREGIVER ON METHODS TO REDUCE AVOIDABLE HOSPITALIZATION AND ED USE. [code = PATIENT HAS A RISK OF HOSPITALIZATION AND ED USE. SKILLED NURSE TO ESTABLISH SUPPORT MEASURES TO MINIMIZE RISK OF HOSPITALIZATION AND ED USE, AND INSTRUCT PATIENT/CAREGIVER ON METHODS TO REDUCE AVOIDABLE HOSPITALIZATION AND ED USE.] Future Scheduled Test SKILLED NU RSE TO PROVIDE INSTRUCTION TO PATIENT/CAREGIVER RELATED TO DISCHARGE PLANNING. [code = SKILLED NURSE TO PROVIDE INSTRUCTION TO PATIENT/CAREGIVER RELATED TO DISCHARGE PLANNING.] Future Scheduled Test SKILLED NU RSE TO PERFORM ENVIRONMENTAL SAFETY RISK ASSESSMENT AND FALL RISK ASSESSMENT AND PROVIDE INSTRUCTION TO IMPLEMENT ENVIRONMENTAL SAFETY AND FALL PREVENTION STRATEGIES THROUGHOUT THE CERTIFICATION PERIOD. SKILLED NURSE WILL MAINTAIN SITUATIONAL AWARENESS AND WILL NOTIFY CLINICAL MOBILE CRANE OPERATOR AND PHYSICIAN/PROVIDER WITH ANY CHANGE IN CONDITION. [code = SKILLED NURSE TO PERFORM ENVIRONMENTAL SAFETY RISK ASSESSMENT AND FALL RISK ASSESSMENT AND PROVIDE INSTRUCTION TO IMPLEMENT ENVIRONMENTAL SAFETY AND FALL PREVENTION STRATEGIES THROUGHOUT THE CERTIFICATION PERIOD. SKILLED NURSE WILL MAINTAIN SITUATIONAL AWARENESS AND WILL NOTIFY CLINICAL MOBILE CRANE OPERATOR AND PHYSICIAN/PROVIDER WITH ANY CHANGE IN CONDITION.] Future Scheduled Test SKILLED NU RSE FOR OBSERVATION AND ASSESSMENT OF PATIENT S PAIN LEVEL AND EFFECTIVENESS OF PAIN MANAGEMENT REGIMEN. SKILLED NURSE TO INSTRUCT PATIENT/CAREGIVER REGARDING PHARMACOLOGIC AND NON-PHARMACOLOGIC PAIN CONTROL MEASURES. SKILLED NURSE TO REPORT TO PHYSICIAN IF PAIN LEVEL IS OUTSIDE OF ESTABLISHED PARAMETERS. [code = SKILLED NURSE FOR OBSERVATION AND ASSESSMENT OF PATIENT S PAIN LEVEL AND EFFECTIVENESS OF PAIN MANAGEMENT REGIMEN. SKILLED NURSE TO INSTRUCT PATIENT/CAREGIVER REGARDING PHARMACOLOGIC AND NON-PHARMACOLOGIC PAIN CONTROL MEASURES. SKILLED NURSE TO REPORT TO PHYSICIAN IF PAIN LEVEL IS OUTSIDE OF ESTABLISHED PARAMETERS.] Future Scheduled Test SKILLED NU RSE TO ASSESS PATIENT'S SKIN INTEGRITY AND INSTRUCT PATIENT/CAREGIVER ON MEASURES TO PREVENT PRESSURE ULCERS. [code = SKILLED NURSE TO ASSESS PATIENT'S SKIN INTEGRITY AND INSTRUCT PATIENT/CAREGIVER ON MEASURES TO PREVENT PRESSURE ULCERS.] Future Scheduled Test SKILLED NU RSE TO INSTRUCT PATIENT/CAREGIVER ON COPD TO INCLUDE TEACHING AND SELF-MANAGEMENT RELATED TO COPD DISEASE PROCESS, SIGNS AND SYMPTOMS, AND COMPLICATIONS. [code = SKILLED NURSE TO INSTRUCT PATIENT/CAREGIVER ON COPD TO INCLUDE TEACHING AND SELF-MANAGEMENT RELATED TO COPD DISEASE PROCESS, SIGNS AND SYMPTOMS, AND COMPLICATIONS.] Future Scheduled Test SKILLED NU RSE FOR O/A, TEACHING AND SELF-MANAGEMENT RELATED TO HEART FAILURE. INSTRUCT PATIENT/CAREGIVER ON SIGNS AND SYMPTOMS OF EXACERBATION TO REPORT AND IMPORTANCE OF OBTAINING AND RECORDING DAILY WEIGHT AND/OR MEASUREMENTS. SN OR TRAINED PATIENT/CAREGIVER TO OBTAIN WEIGHT DAILY AND WEIGHT GAIN OF 2 LBS OVERNIGHT OR 5 LBS IN 1 WEEK TO BE REPORTED TO PHYSICIAN/PROVIDER. [code = SKILLED NURSE FOR O/A, TEACHING AND SELF-MANAGEMENT RELATED TO HEART FAILURE. INSTRUCT PATIENT/CAREGIVER ON SIGNS AND SYMPTOMS OF EXACERBATION TO REPORT AND IMPORTANCE OF OBTAINING AND RECORDING DAILY WEIGHT AND/OR MEASUREMENTS. SN OR TRAINED PATIENT/CAREGIVER TO OBTAIN WEIGHT DAILY AND WEIGHT GAIN OF 2 LBS OVERNIGHT OR 5 LBS IN 1 WEEK TO BE REPORTED TO PHYSICIAN/PROVIDER.] Future Scheduled Test SKILLED NU RSE TO INSTRUCT PATIENT/CAREGIVER ON SIGNS AND SYMPTOMS, RISK FACTORS, COMPLICATIONS, AND MANAGEMENT OF ATRIAL FIBRILLATION. [code = SKILLED NURSE TO INSTRUCT PATIENT/CAREGIVER ON SIGNS AND SYMPTOMS, RISK FACTORS, COMPLICATIONS, AND MANAGEMENT OF ATRIAL FIBRILLATION.] Future Scheduled Test SKILLED NU RSE TO PROVIDE TEACHING/REINFORCEMENT RELATED TO URINARY INCONTINENCE. [code = SKILLED NURSE TO PROVIDE TEACHING/REINFORCEMENT RELATED TO URINARY INCONTINENCE.] Future Scheduled Test SKILLED NU RSE FOR O/A AND TEACHING RELATED TO LUNG CANCER/NEOPLASM) INCLUDING SIGNS AND SYMPTOMS OF DISEASE PROGRESSION, TREATMENT, AND MANAGEMENT OF POTENTIAL SIDE EFFECTS. [code = SKILLED NURSE FOR O/A AND TEACHING RELATED TO LUNG CANCER/NEOPLASM) INCLUDING SIGNS AND SYMPTOMS OF DISEASE PROGRESSION, TREATMENT, AND MANAGEMENT OF POTENTIAL SIDE EFFECTS.] Future Scheduled Test PHYSICAL T HERAPIST TO EVALUATE PATIENT FOR STRENGTH AND GAIT TRAINING, AND FALL PREVENTION [code = PHYSICAL THERAPIST TO EVALUATE PATIENT FOR STRENGTH AND GAIT TRAINING, AND FALL PREVENTION] Future Scheduled Test PHYSICAL T HERAPIST TO EVALUATE PATIENT SECONDARY TO FUNCTIONAL DEFICITS/SAFETY CONCERNS. PHYSICAL THERAPY TO ESTABLISH /UPGRADE/DOWNGRADE THERAPEUTIC EXERCISE PROGRAM AND INSTRUCT PATIENT/CAREGIVER ON EXERCISE PRECAUTIONS WITH WRITTEN HOME PROGRAM. MAY INCLUDE PROM, AAROM, AROM, RROM APPROPRIATE TO IMPROVE FUNCTIONAL STRENGTH AND RANGE OF MOTION. PHYSICAL THERAPY TO INSTRUCT PATIENT/CAREGIVER ON GAIT TRAINING TECHNIQUES USING APPROPRIATE ASSISTIVE DEVICE, PROPER BODY MECHANICS TO IMPROVE MOBILITY, AND PREVENT INJURY OF PATIENT AND/OR CAREGIVER. PHYSICAL THERAPY TO ASSESS AND RECOMMEND HOME SAFETY ADAPTATIONS AND EDUCATE PATIENT /CAREGIVER ON FALL PREVENTION STRATEGIES. PHYSICAL THERAPY FOR OBSERVATION AND ASSESSMENT OF PAIN, EFFECTIVENESS OF PAIN MANAGEMENT REGIMEN AND SKILLED TEACHING RELATED TO PAIN MANAGEMENT. THERAPIST TO REPORT INCREASED PAIN LEVEL TO PHYSICIAN FOR PROMPT INTERVENTION. PHYSICAL THERAPY TO INSTRUCT PATIENT/CAREGIVER ON BALANCE AND BALANCE STRATEGIES TO IMPROVE SAFE MOBILITY AND REDUCE RISK FOR FALL AND INJURY SUMMARY OF THERAPY EVAL/ASSESSMENT FINDINGS AND REASON(S) SKILLS OF A THERAPIST ARE INDICATED: PATIENT REFERRED AFTER ER VISIT FOR FALLING. PAST MEDICAL HISTORY INCLUDES KNEE OSTERRITIS LEFT GREATER THAN RIGHT, LUNG CANCER WITH CHRONIC O2 USE. PATIENTS BASELINE WAS WITH FOUR-WHEEL WALKER. PATIENTS GOAL IS TO NOT FALL. PATIENT IS ALERT AND ORIENTED TIMES 4. SHE STANDS5 FEET 4 INCHES TALL WEIGHT OF 233 LB. PATIENT COMPLAINTS OF LEFT KNEE BILATERAL SHOULDER PAIN POSSIBLY FROM ELEVATED HT OF WALKER. THERAPIST ADJUSTED WALKER TO LOWER LEVEL WITH DECREASED SYMPTOMS. PATIENT IS CURRENTLY SPONGE BATH LEVEL. RESTING BLOOD PRESSURE 138 / 81 [id number] ON 2 L OF O2 SATURATION AND 96%. PATIENT IS LEGALLY BLIND. LLE EDEMA. PATIENT POST IS FWD FLEX WITH ROUND SHOULDERS. LEFT HIP WEAKNESS 3 MINUS/5. PATIENT UTILIZES LIFT CHAIR FOR SIT TO STAND TRANSFER. AMBULATING WITH FOUR WHEEL WALKER ANTALGIC PATTERN ON LEFT. 0 REPETITIONS OF CHAIR RISE TEST. PATIENT HAS FOUR STEPS TO ENTER HOME. PATIENT WILL BENEFIT FROM GENERAL HOME PHYSICAL THERAPY TO ADDRESS LEG STRENGTHENING, BALANCE AND FALL PREVENTION, OSTEOARTHRITIS PROGRAM FOR LEFT KNEE INCLUDING RANGE OF MM RE EDUCATION STRENGTHENING. PATIENT AGREES WITH PLAN OF CARE. [code = PHYSICAL THERAPIST TO EVALUATE PATIENT SECONDARY TO FUNCTIONAL DEFICITS/SAFETY CONCERNS. PHYSICAL THERAPY TO ESTABLISH /UPGRADE/DOWNGRADE THERAPEUTIC EXERCISE PROGRAM AND INSTRUCT PATIENT/CAREGIVER ON EXERCISE PRECAUTIONS WITH WRITTEN HOME PROGRAM. MAY INCLUDE PROM, AAROM, AROM, RROM APPROPRIATE TO IMPROVE FUNCTIONAL STRENGTH AND RANGE OF MOTION. PHYSICAL THERAPY TO INSTRUCT PATIENT/CAREGIVER ON GAIT TRAINING TECHNIQUES USING APPROPRIATE ASSISTIVE DEVICE, PROPER BODY MECHANICS TO IMPROVE MOBILITY, AND PREVENT INJURY OF PATIENT AND/OR CAREGIVER. PHYSICAL THERAPY TO ASSESS AND RECOMMEND HOME SAFETY ADAPTATIONS AND EDUCATE PATIENT /CAREGIVER ON FALL PREVENTION STRATEGIES. PHYSICAL THERAPY FOR OBSERVATION AND ASSESSMENT OF PAIN, EFFECTIVENESS OF PAIN MANAGEMENT REGIMEN AND SKILLED TEACHING RELATED TO PAIN MANAGEMENT. THERAPIST TO REPORT INCREASED PAIN LEVEL TO PHYSICIAN FOR PROMPT INTERVENTION. PHYSICAL THERAPY TO INSTRUCT PATIENT/CAREGIVER ON BALANCE AND BALANCE STRATEGIES TO IMPROVE SAFE MOBILITY AND REDUCE RISK FOR FALL AND INJURY SUMMARY OF THERAPY EVAL/ASSESSMENT FINDINGS AND REASON(S) SKILLS OF A THERAPIST ARE INDICATED: PATIENT REFERRED AFTER ER VISIT FOR FALLING. PAST MEDICAL HISTORY INCLUDES KNEE OSTERRITIS LEFT GREATER THAN RIGHT, LUNG CANCER WITH CHRONIC O2 USE. PATIENTS BASELINE WAS WITH FOUR-WHEEL WALKER. PATIENTS GOAL IS TO NOT FALL. PATIENT IS ALERT AND ORIENTED TIMES 4. SHE STANDS5 FEET 4 INCHES TALL WEIGHT OF 233 LB. PATIENT COMPLAINTS OF LEFT KNEE BILATERAL SHOULDER PAIN POSSIBLY FROM ELEVATED HT OF WALKER. THERAPIST ADJUSTED WALKER TO LOWER LEVEL WITH DECREASED SYMPTOMS. PATIENT IS CURRENTLY SPONGE BATH LEVEL. RESTING BLOOD PRESSURE 138 / 81 [id number] ON 2 L OF O2 SATURATION AND 96%. PATIENT IS LEGALLY BLIND. LLE EDEMA. PATIENT POST IS FWD FLEX WITH ROUND SHOULDERS. LEFT HIP WEAKNESS 3 MINUS/5. PATIENT UTILIZES LIFT CHAIR FOR SIT TO STAND TRANSFER. AMBULATING WITH FOUR WHEEL WALKER ANTALGIC PATTERN ON LEFT. 0 REPETITIONS OF CHAIR RISE TEST. PATIENT HAS FOUR STEPS TO ENTER HOME. PATIENT WILL BENEFIT FROM GENERAL HOME PHYSICAL THERAPY TO ADDRESS LEG STRENGTHENING, BALANCE AND FALL PREVENTION, OSTEOARTHRITIS PROGRAM FOR LEFT KNEE INCLUDING RANGE OF MM RE EDUCATION STRENGTHENING. PATIENT AGREES WITH PLAN OF CARE.] Goal 2025-01-22 Patient Goal - FEEL BETTER Goal 2025-02-14 Patient Goal - FEEL BETTER,G ET STRONGER Goal Patient Goal - FEEL BETTER,G ET STRONGER Goal Provider Goal - A PLAN OF CARE WILL BE ESTABLISHED THAT MEETS PATIENT'S USP NEEDS AND INCLUDES PATIENT GOAL FOR HOME HEALTH. Goal Provider Goal - PATIENT/CAREGIVER WILL VERBALIZE UNDERSTANDING OF EDUCATION PROVIDED ON MEDICATIONS BY THE END OF THE CERTIFICATION PERIOD. Goal Provider Goal - PATIENT WILL HAVE SUPPORT MEASURES ESTABLISHED TO PREVENT HOSPITALIZATION AND ED USE AND PATIENT/CAREGIVER WILL VERBALIZE/DEMONSTRATE METHODS TO REDUCE AVOIDABLE HOSPITALIZATION AND ED USE BY END OF EPISODE. Goal Provider Goal - PATIENT/CAREGIVER WILL VERBALIZE UNDERSTANDING OF DISCHARGE PLANNING INSTRUCTIONS BY DATE OF DISCHARGE. Goal Provider Goal - PATIENT/CAREGIVER WILL VERBALIZE/DEMONSTRATE EFFECTIVE ENVIRONMENTAL SAFETY AND FALL PREVENTION STRATEGIES, WILL REMAIN SAFE IN THE COMMUNITY, AND WILL BE FREE OF DANGER TO SELF AND OTHERS THROUGHOUT THE CERTIFICATION PERIOD. Goal Provider Goal - PATIENT/CAREGIVER WILL DEMONSTRATE UNDERSTANDING OF PHARMACOLOGIC AND NONPHARMACOLOGIC PAIN CONTROL MEASURES AND PATIENT WILL HAVE IMPROVEMENT IN PAIN INTERFERING WITH ACTIVITY EVIDENCED BY PAIN AT A LEVEL THAT IS ACCEPTABLE TO THE PATIENT AND PAIN LEVEL WITHIN ESTABLISHED PARAMETERS BY END OF CERTIFICATION PERIOD. Goal Provider Goal - PATIENT/CAREGIVER WILL VERBALIZE UNDERSTANDING OF PRESSURE ULCER PREVENTION BY END OF THE EPISODE. Goal Provider Goal - PATIENT/CAREGIVER WILL VERBALIZE/DEMONSTRATE KNOWLEDGE AND MANAGEMENT OF COPD BY END OF EPISODE. Goal Provider Goal - PATIENT/CAREGIVER WILL VERBALIZE/DEMONSTRATE KNOWLEDGE AND MANAGEMENT OF HEART FAILURE DISEASE PROCESS BY END OF EPISODE. Goal Provider Goal - PATIENT/CAREGIVER WILL VERBALIZE UNDERSTANDING OF SIGNS AND SYMPTOMS, COMPLICATIONS, AND MANAGEMENT OF ATRIAL FIBRILLATION THROUGHOUT THE CERTIFICATION PERIOD. Goal Provider Goal - PATIENT / CAREGIVER WILL VERBALIZE UNDERSTANDING OF EFFECTS OF URINARY INCONTINENCE BY THE END OF THE CERTIFICATION PERIOD. Goal Provider Goal - PATIENT/CAREGIVER WILL VERBALIZE/DEMONSTRATE MANAGEMENT OF CANCER/NEOPLASM) CANCER/NEOPLASM DISEASE AND THE SIDE EFFECTS OF TREATMENTS DURING THIS EPISODE. Goal Provider Goal - A PHYSICAL THERAPY EVALUATION TO BE COMPLETED WITH RECOMMENDATIONS AND/OR WRITTEN PLAN OF TREATMENT ESTABLISHED FOR PHYSICIAN S SIGNATURE. Goal Provider Goal - PHYSICAL THERAPY EVALUATION TO BE COMPLETED WITH RECOMMENDATIONS AND/OR WRITTEN TREATMENT PLAN OF CARE ESTABLISHED FOR THE PHYSICIAN S SIGNATURE PATIENT/CAREGIVER WILL PERFORM THERAPEUTIC EXERCISE/S AND DEMONSTRATE PARTICIPATION IN A HOME PROGRAM. PATIENT/CAREGIVER WILL DEMONSTRATE IMPROVED GAIT TECHNIQUES TO MINIMIZE RISK OF INJURY. PATIENT/CAREGIVER WILL DEMONSTRATE/VERBALIZE UNDERSTANDING OF RECOMMENDATIONS TO INCREASE SAFETY IN THE HOME AND FALL PREVENTION. INCREASED PAIN OR INEFFECTIVE PAIN CONTROL MEASURES WILL BE IDENTIFIED AND PROMPTLY REPORTED TO THE PHYSICIAN. PATIENT/CAREGIVER WILL DEMONSTRATE EFFECTIVE PAIN MANAGEMENT. PATIENT/CAREGIVER WILL DEMONSTRATE IMPROVED BALANCE AND REDUCE THE RISK OF FALLS AND INJURY. Progress Notes Progress Notes <paragraph>[Visit Date: 2024 by GRISELDA TOMLIN RN]:</paragraph><paragraph>PATIENT TOOK 20 MINUTES TO ANSWER THE DOOR FOR THIS PARKING ATTENDANT. NURSE CALLED MATA SHORT WHO WAS ALSO TO ALSO SEE PATIENT AT THIS TIME. WHEN NURSE WAS LEAVING PATIENT FINALLY CAME TO THE DOOR. SHE HAD JUST WOKEN UP WAS HAVING DIFFICULTY WALKING AND WAS VERY UNKEMPT AND LETHARGIC. NURSE ASSISTED HER BACK INTO HER CHAIR. ASSESSMENT FINDINGS INCLUDE FAIRLY STABLE VITAL SIGNS WITH OXYGEN LEVEL IN THE 80S. NURSE PLACED OXYGEN BACK ON FOR PATIENT. HIGHEST READING NURSE OBTAINED IS 91% ON O2, SHE TOOK MORNING PILLS IN THE PRESENCE OF THIS PARKING ATTENDANT. APPARENTLY MATA IS NOW COMING TOMORROW INSTEAD. NURSE HAD DISCUSSION WITH PATIENT ABOUT HER ABILITY TO KEEP UP WITH STAYING HOME AND TRYING TO TAKE CARE OF HERSELF, THERE IS A DEFINITE DECLINE OVER THE PAST 2 WEEKS. PATIENT COMPLAINS OF BOWEL INCONTINENCE, DENIES ANY FALLS HOWEVER AND REPORTS NORMAL APPETITE. NURSE WAS ABLE TO GET HER ON THE SCALE AND WEIGHT IS WITHIN HER USUAL RANGE. NURSE SETTLED PATIENT COMFORTABLY AND DID TELL HER I WOULD BE TALKING TO HER PRIMARY CARE OFFICE ABOUT TODAY'S FINDINGS, AND ALSO OUR HORSE FARM MANAGER IN PREPARATION FOR HER VISIT TOMORROW. PATIENT WAS AGREEABLE. PATIENT KNOWS TO CALL WITH FURTHER QUESTIONS OR CHANGES.</paragraph> Encounters Start Date/Time End Date/Time Encounter Type Admission Type Attending [facility] Care Facility Care Department Encounter ID Discharge Date Discharge Status Discharge Condition Discharge Reason Percent Goals Met 2025-01-23 00:00:00 2025-03-23 00:00:00 Outpatient RECERTIFIC ATION BROWN, [facility] [id number] 1
== END 2025-03-02 16:42 | disposition home or self-care (01) ==
PROVIDERS: Student in an Organized Health Care Education/Training Program; Emergency Provider Emergency Medicine
DX: G93.41 Metabolic encephalopathy (principal); R62.7 Adult failure to thrive; R53.1 Weakness; R53.83 Other fatigue; M19.90 Unspecified osteoarthritis, unspecified site; Z79.899 Other long term (current) drug therapy; Z91.81 History of falling; Z99.81 Dependence on supplemental oxygen
CPT/HCPCS: 36415; 70450; 71045; 71260; 74177; 80053; 81001; 83605; 85025; 87040; 87086; 87502; 87635; 93005; 96361; 96374; 97162; 99285; J1956; Q9967

== ENCOUNTER → 2025-03-01 15:13 | Outpatient (BNV) | payer OTHER, MEDICARE, SELFPAY | PROVIDERS: Emergency Provider Emergency Medicine; Visit Provider Internal Medicine Cardiovascular Disease | DX: I44.0 Atrioventricular block, first degree (principal) | CPT/HCPCS: 93010 ==

== ENCOUNTER → 2025-03-01 16:00 | Outpatient (BNV) | payer OTHER, MEDICARE, SELFPAY | PROVIDERS: Emergency Provider Student in an Organized Health Care Education/Training Program; Visit Provider Radiology Diagnostic Radiology | DX: K40.90 Unilateral inguinal hernia, without obstruction or gangrene, not specified as recurrent (principal); J98.11 Atelectasis; R44.1 Visual hallucinations | CPT/HCPCS: 70450; 71260; 74177 ==